=== PATIENT | male | born 1955 | race Caucasian/White ===

== ENCOUNTER 2016-08-10 10:03 | Day surgery (SDC) | payer OTHER ==
[~2016-08-10] VITALS: Ht 167.6 cm; Wt 106.4 kg
[~2016-08-10 10:03] MED LIST: ASPI-557 PO; CEFAZOLIN 1 GRAM INJECTION IV ONE; HYDR-4009 PO; LOSA1TAB56 PO; LR 1,000 ML IV SCH; MULT-1114 PO; PRAV40TA3 PO
--- OUTSIDE RECORDS SUMMARY | 2016-08-10 10:14 | XMS REPORT | Referral Summary ---
Author Author [facility] Organization [facility] Address Unknown Phone Unavailable Care Team Providers Care Galvanizer Name Role Phone Michelle Victoria Primary Care Physician [phone] Encounter Date(s): 08/02/15 - 08/02/15 [facility] [address] [place], [place] [address] Discharge Diagnosis: Lumbosacral radiculopathy Discharge Diagnosis: DDD (degenerative disc disease), lumbar Discharge Diagnosis: Enthesopathy of hip region Discharge Diagnosis: Meralgia paresthetica 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 Discharge Disposition: 01-Home or Self Care Attending Physician: Temo Freeman MD Admitting Physician: Temo Freeman MD Referring Physician: Luana Covington APRN Vital Signs Most recent to 1 oldest [Reference Range]: Blood Pressure 128/78 mmHg [90-140/60-90 mmHg] (08/02/15 3:16 PM) Problem List Condition Effective Dates Status Health Status Informant Achilles 04/12/11 - 03/21/14 Resolved bursitis/tendonitis( Confirmed) Allergic Active rhinitis(Confirmed) Hay fever(Confirmed) Active Benign essential Resolved hypertension (disorder)(Confirmed ) Dyslipidemia(Confirm Active ed) History of prostate Active cancer(Confirmed) Hypertension(Confirm Active ed) Erectile Active dysfunction(Confirme d) Meralgia Active paresthetica(Confirm ed) Mixed hyperlipidemia Resolved (disorder)(Confirmed ) Obesity(Confirmed) Active patient Allergies, Adverse Reactions, Alerts Substance Reaction Severity Status AmLODIPine Besylate EDEMA Active Medications aspirin 81 mg oral tablet 1 tabs, Oral, Daily, # 90 tabs, 0 Refill(s) Start Date: 01/22/14 Status: Ordered gabapentin 100 mg oral capsule See Instructions, Pain Moderate (4-6), 1 -3 caps Oral TID as needed, # 90 Each, 0 Refill(s), Pharmacy: [facility] #[id number], 1 -3 caps Oral TID as needed, PRN:Pain Moderate (4-6) Start Date: 07/22/15 Status: Ordered losartan-hydrochlorothiazide 100 mg-12.5 mg oral tablet 1 tabs, Oral, Daily, # 90 tabs, 1 Refill(s), Pharmacy: [facility] Start Date: 07/02/15 Status: Ordered multivitamin Daily, 0 Refill(s) Start Date: 01/22/14 Status: Ordered Naprosyn 500 mg oral tablet 500 mg 1 tabs, Oral, BID, Pain Moderate (4-6), # 180 tabs, 0 Refill(s), Pharmacy : [facility] #[id number], 1 tabs Oral BID,PRN:Pain Moderate (4-6) Start Date: 06/24/15 Status: Ordered pravastatin 40 mg oral tablet See Instructions, TAKE 1 TABLET DAILY, # 90 tabs, eRx: [facility], TAKE 1 TABLET DAILY Start Date: 06/03/15 Status: Ordered predniSONE 10 mg oral tablet See Instructions, 40 mg x3 days , 30mg x3 days, 20mg x3 days, 10mg x3 days, # 30 tabs, 0 Refill(s), Pharmacy: [facility] #[id number], 40 mg x3 days , 30mg x3 days, 20mg x3 days, 10mg x3 days Start Date: 07/29/15 Stop Date: 08/12/15 Status: Ordered Tylenol Extra Strength mg, Oral, q6hr, as needed for pain, 0 Refill(s) Start Date: 07/22/15 Status: Ordered Results No data available for this section Immunizations Vaccine Date Refusal Reason tetanus/diphth/pertuss (Tdap) adult/adol 11/24/05 influenza virus vaccine, live 05/29/13 pneumococcal 23-polyvalent vaccine 05/29/13 zoster vaccine live 04/02/11 Procedures Procedure Date Related Diagnosis Body Site Incision and drainage of abscess of neck1 05/04/14 Radical prostatectomy 09/11/07 Colonoscopy 09/08/07 Cystoscopy2 08/15/07 TURP - Redo transurethral resection of prostate 1DELAYED SECONDARY CLOSURE OF 5CM WOUND INVOLVING POSTIER NECK. 2transrectal needle prostate bx and vasectomy Social History Social History Type Response Smoking Status Never smoker Assessment and Plan Extracted from: Title: Office Visit Note Author: Temo Freeman MD Date: 08/02/15 Assessment/Plan DDD (degenerative disc disease), lumbar Ordered: Request for Therapies Enthesopathy of hip region Ordered: Request for Therapies Foraminal stenosis of lumbar region Ordered: Request for Therapies Lumbosacral radiculopathy Ordered: Request for Therapies Meralgia paresthetica Ordered: Request for Therapies RECOMMENDATIONS: I explained to the patient he has 3 symptomatic pathologies, the most acutely symptomatic his left-sided trochanteric,then a left L4 radiculopathyand meralgia paresthetica. This correlates with the MRI showing disc herniation stenosis at the L4 5 region. Due to the patients significant symptoms which have persisted , I would recommend left trochanteric bursa injection under Ultrasoundand physical therapy for his back. I explained the rationale of the procedure as well as the possible complications and the patient voiced understanding and wishes to proceed. I alsoadvised him on the importance of wearing looser clothingandnot putting his wallet in his left back pocket. He also realizes the importance of losing weightfor his meralgia paresthetica and back issues. I ordered x-rays of his lumbar spine flexion-extension views and x-rays of his left hip. All questions were answered, pathology explained using appropriate models and relevant education provided. I shall see the patient back for reassessment following his trochanteric bursa injection and completion of physical therapy.
--- OUTSIDE RECORDS SUMMARY | 2016-08-10 10:14 | XMS REPORT | Referral Summary ---
Author Author [facility] Organization [facility] Address Unknown Phone Unavailable Care Team Providers Care Sole Trimmer Name Role Phone Michelle Victoria Primary Care Physician [phone] Encounter VC Date(s): 09/11/15 - 09/11/15 [facility] [address] [place] [id number] Discharge Diagnosis: Elevated WBCs Discharge Diagnosis: Knee pain, left Discharge Diagnosis: Diverticulitis of colon with bleeding Discharge Disposition: 01-Home or Self Care Attending Physician: Luana Covington APRN Admitting Physician: Luana Covington APRN Vital Signs Most recent to 1 oldest [Reference Range]: Temperature Tympanic 36.4 degC [36.6-38.1 degC] *LOW* (09/11/15 3:41 PM) Peripheral Pulse 84 bpm Rate [60-100 bpm] (09/11/15 3:41 PM) Respiratory Rate 16 br/min [14-20 br/min] (09/11/15 3:41 PM) Blood Pressure 134/86 mmHg [90-140/60-90 mmHg] (09/11/15 3:41 PM) Problem List Condition Effective Dates Status Health Status Informant Achilles 04/12/11 - 03/21/14 Resolved bursitis/tendonitis( Confirmed) Allergic Active rhinitis(Confirmed) Hay fever(Confirmed) Active Benign essential Resolved hypertension (disorder)(Confirmed ) DDD (degenerative Active disc disease), lumbar(Confirmed) Diverticulitis of Active colon with bleeding(Confirmed)1 Dyslipidemia(Confirm Active ed) Enthesopathy of hip Active region(Confirmed) History of prostate Active cancer(Confirmed) Hypertension(Confirm Active ed) Prediabetes(Confirme Active d) Erectile Active dysfunction(Confirme d) Lumbar Active radiculopathy(Confir med) Meralgia Active paresthetica(Confirm ed) Mixed hyperlipidemia Resolved (disorder)(Confirmed ) Obesity(Confirmed) Active patient Lumbar disc Active herniation(Confirmed ) Lumbar spinal Active stenosis(Confirmed) 1colonoscopy 08/15/15 GI bleeding-probable cause. No source identiified. Allergies, Adverse Reactions, Alerts Substance Reaction Severity Status AmLODIPine Besylate EDEMA Active Medications losartan-hydrochlorothiazide 100 mg-12.5 mg oral tablet 1 tabs, Oral, Daily, # 90 tabs, 1 Refill(s), Pharmacy: [facility] Start Date: 07/02/15 Status: Ordered multivitamin Daily, 0 Refill(s) Start Date: 01/22/14 Status: Ordered [place] 5 mg-325 mg oral tablet 1 tabs, Oral, q6hr, as needed for pain, # 90 tabs, 0 Refill(s) Start Date: 09/11/15 Stop Date: 10/11/15 Status: Ordered pravastatin 40 mg oral tablet See Instructions, TAKE 1 TABLET DAILY, # 90 tabs, 1 Refill(s), eRx: [facility], TAKE 1 TABLET DAILY Start Date: 08/21/15 Status: Ordered Results No data available for this section Immunizations Vaccine Date Refusal Reason tetanus/diphth/pertuss (Tdap) adult/adol 11/24/05 influenza virus vaccine, live 05/29/13 pneumococcal 23-polyvalent vaccine 05/29/13 zoster vaccine live 04/02/11 Procedures Procedure Date Related Diagnosis Body Site COLORECTAL CANCER SCREENING; COLONOSCOPY ON 08/15/15 INDIVIDUAL NOT MEETING CRITERIA FOR HIGH RISK1 Esophagogastroduodenoscopy and biopsy2 08/13/15 Incision and drainage of abscess of neck3 05/04/14 Radical prostatectomy 09/11/07 Colonoscopy 09/08/07 Cystoscopy4 08/15/07 TURP - Redo transurethral resection of prostate 1Normal colonoscopy, with sigmoid diverticulosis the likely cause of rectal bleeding. Repeat colonoscopy in 10 years 2Negative for Matamoros's. No evidence of ulcers or bleeding. Performed for rectal bleeding. 3DELAYED SECONDARY CLOSURE OF 5CM WOUND INVOLVING POSTIER NECK. 4transrectal needle prostate bx and vasectomy Social History Social History Type Response Smoking Status Never smoker Assessment and Plan Extracted from: Title: Office Visit Note-pain/lab Author: Luana Covington FACILITIES MAINTENANCE ENGINEER Date: 09/11/15 Assessment/Plan 1.Knee pain, left Continue physical therapy. Reviewed recent MRI results. No significant abnormalities other than some mild swelling. Refill provided for Groton. Number 60. Patient may take 2-3 per day. Try to decrease his physical therapy goes along. Discussed adding a muscle relaxer. Patient will consider and talk with physical therapist about tomorrow to see if they think it would be beneficial. 2.Elevated WBCs Resolved. Labs reviewed. 3.Diverticulitis of colon with bleeding Asymptomatic. Hemoglobin relatively stable. Plan follow-up in 4 months for med check at that time. Orders: HYDROcodone-acetaminophen, 1 tabs, Oral, q6hr, as needed for pain, # 90 tabs, 0 Refill(s) Addendum I reviewed this chart, the patient's medical history, and the by Alf, Resident's/FACILITIES MAINTENANCE ENGINEER's/PA/RN's/PharmD's documented findings, and concur with the assessment and Santhosh DO plan as above. on September 11, 2015 18:57:02 MURRAYT
--- OUTSIDE RECORDS SUMMARY | 2016-08-10 10:14 | XMS REPORT | Referral Summary ---
Author Author [facility] Organization [facility] Address Unknown Phone Unavailable Care Team Providers Care Clinical Faculty Name Role Phone Michelle Victoria Primary Care Physician [phone] Encounter VC Date(s): 03/03/16 - 03/03/16 [facility], [address] [place] [address] Discharge Diagnosis: Diverticulitis of colon with bleeding Discharge Diagnosis: Viral respiratory illness Discharge Disposition: 01-Home or Self Care Attending Physician: Luana Covington APRN Admitting Physician: Luana Covington APRN Vital Signs Most recent to 1 oldest [Reference Range]: Temperature Tympanic 38.3 degC [36.6-38.1 degC] *HI* (03/03/16 12:53 PM) Peripheral Pulse 80 bpm Rate [60-100 bpm] (03/03/16 12:53 PM) Respiratory Rate 16 br/min [14-20 br/min] (03/03/16 12:53 PM) Blood Pressure 132/86 mmHg [90-140/60-90 mmHg] (03/03/16 12:53 PM) Problem List Condition Effective Dates Status [...] Severity Status AmLODIPine Besylate EDEMA Active Medications amoxicillin 875 mg oral tablet 875 mg 1 tabs, Oral, BID, X 10 days, # 20 tabs, 0 Refill(s) Start Date: 03/03/16 Stop Date: 03/13/16 Status: Ordered Aspir-Low 81 mg oral delayed release tablet 81 mg 1 tabs, Oral, Daily, # 30 tabs, 0 Refill(s) Start Date: 03/03/16 Status: Ordered losartan-hydrochlorothiazide 100 mg-12.5 mg oral tablet 1 tabs, Oral, Daily, # 90 tabs, 3 Refill(s), Pharmacy: [facility] Start Date: 09/27/15 Status: Ordered multivitamin Daily, 0 Refill(s) Start Date: 01/22/14 Status: Ordered [place] 5 mg-325 mg oral tablet 1 tabs, Oral, q6hr, as needed for pain, # 90 tabs, 0 Refill(s) Start Date: 09/11/15 Stop Date: 10/11/15 Status: Ordered pravastatin 40 mg oral tablet See Instructions, TAKE 1 TABLET DAILY, # 90 tabs, 3 Refill(s), Pharmacy: [facility], TAKE 1 TABLET DAILY Start Date: 09/27/15 Status: Ordered Results No data available for this section Immunizations Vaccine Date Refusal Reason tetanus/diphth/pertuss (Tdap) adult/adol 01/07/16 tetanus/diphth/pertuss (Tdap) adult/adol 11/24/05 influenza virus vaccine, [...] and Plan Extracted from: Title: Office Visit Note-URI Author: Luana Covington MORTGAGE SPECIALIST Date: Assessment/Plan 1.Viral respiratory illness Discussed with patient this is likely viral in nature. The clinical history is most compatible with that of a viral syndrome. Clinical examination does not suggest sinusitis, pneumonia, meningitis or streptococcal pharyngitis. Increase fluid intake. Enc good handwashing. Recommend OTC Mucinexor other [id number] cough and cold medications as long as he does not duplicate active ingredients. Afrin nasal spray (for no more than 5 days), per package instructions as need for cough/congestion. . Recommend OTC Tylenol per package instructions as needed for fever, pain, and body aches. Symptoms should improve over the next 1-2 weeks. If symptoms get worse, spikes fever, inc cough or shortness of breath recommend starting amoxicillin 875 mg one by mouth twice a day 10 daysorER/IC. I do not feel that any further extensive workup is indicated. However the patient is counseled that should new symptoms develop or the symptoms worsen, further evaluation and testing may be warranted as those symptoms declare themselves and that followup is of vital importance. 2.Diverticulitis of colon with bleeding Patient wondering if he should restart baby aspirin. I think that is reasonable. Recommend enteric-coated baby aspirin. Avoid NSAIDs.
--- OUTSIDE RECORDS SUMMARY | 2016-08-10 10:14 | XMS REPORT | Continuity of Care Document ---
Author Author [facility] Organization [facility] Address Unknown Phone Unavailable Support Name Relationship Address Phone AIRAM HINTON FACS, MD Caregiver [address] [place] [address] [place], [place] [phone] JONG BLOOM MD Caregiver [address] [facility] [address] [place], [place] [phone] XIAOANN Julien Caregiver [address] [place], [place] [phone] JUSTA COCHRAN Next Of Kin [address] [place], [place] [id number] Insurance Providers Payer Name Policy Number Subscriber Name Relationship [employer] Other [id number] Sunil Cochran 18 Self Advance Directives Directive Response Recorded Date/Time Ordered Resuscitation Status Full Code 05/03/14 3:34pm Resuscitation Documents on File No 05/03/14 9:17am Problems No known problems or medical conditions. Medications Medication Dose Route Sig Days/Qty Instructions Order Date Discontinued Date Status [Prosed Ds] FOUR TIMES DAILY 12/25/09 01/02/10 Discontinued Pravastatin Sodium 1 Tab PO DAILY 90 Qty 05/03/14 Active Losartan Potassium 1 Tab PO DAILY 90 Qty 05/03/14 Active Cephalexin 1 Tab PO THREE TIMES A DAY 21 Qty 05/03/14 Active Multivitamin 1 Tab PO DAILY 05/03/14 Active Aspirin 1 Tab PO DAILY 05/03/14 Active Social History Social History Problem Response Recorded Date/Time Chewing Tobacco Status No 05/03/2014 9:12am Hx Substance Use No 05/03/2014 9:12am Hx Alcohol Use No 05/03/2014 9:12am Has the pt used tobacco in the last 12 months No 05/03/2014 9:12am Query Response Start Date Stop Date Smoking Status Never smoker Hospital Discharge Instructions No hospital discharge instructions. Plan of Care No plan of care. Functional Status No functional status results. Allergies, Adverse Reactions, Alerts Allergen Type Severity Reaction Status Last Updated No Known Drug Allergies Allergy Unknown Active 08/12/07 Amlodipine Allergy Unknown Active 05/03/14 Immunizations Name Given Type Hx Influenza Vaccination No Historical Hx Pneumococcal Vaccination No Historical Hx Influenza Vaccination No Historical Vital Signs Acute Vital Signs Vital Response Date/Time Temperature (Fahrenheit) 97.1 deg F (96.8 - 99.1) Temperature (Calculated Celsius) 36.66170 degrees C (36.0 - 37.3) Temperature Source Temporal Pulse Rate (adult) 76 bpm (60 - 100) Respiratory Rate 16 breaths/min (10 - 20) O2 Sat by Pulse Oximetry 94 % (90 - 100) Oxygen Delivery Method Room Air Blood Pressure 131/71 mm Hg Blood Pressure Source Automatic Cuff Height 5 ft 6 in Weight 312 lb Body Mass Index 50.0 kg/m^2 Results Test Source Date Result Interp. Ref. Range Comments Activated Partial Thromboplast Time August 15, 2007 8:20am 34.5 SEC N 25- 36 COMMENT TO SCU AT 0800 Alanine Aminotransferase (ALT/SGPT) December 27, 2009 4:00am 26 U/L N 21-72 Albumin December 27, 2009 4:00am 4.57 G/DL N 3.5-5.0 Albumin/Globulin Ratio December 27, 2009 4:00am 1.6 RATIO N 1.1-2.2 Alkaline Phosphatase December 27, 2009 4:00am 82 U/L N 38-126 Anion Gap August 26, 2012 6:04pm 9 MEQ/L N 5-15 Aspartate Amino Transf (AST/SGOT) December 27, 2009 4:00am 42 U/L N 17- 59 BUN/Creatinine Ratio August 26, 2012 6:04pm 22 RATIO N 6-26 Basophils # (Auto) May 04, 2014 10:50am 0.0 T/MM3 N 0-0.2 Basophils (%) (Auto) May 04, 2014 10:50am 0.3 % N 0-2 Blood Urea Nitrogen August 26, 2012 6:04pm 20.0 MG/DL N 9-20 Calcium Level August 26, 2012 6:04pm 9.2 MG/DL N 8.4-10.2 Calculated Osmolality August 26, 2012 6:04pm 277 MOSM/KG N 261-280 Carbon Dioxide Level August 26, 2012 6:04pm 30 MEQ/L N 22-30 Chloride Level August 26, 2012 6:04pm 104 MEQ/L N 98-107 Creatinine August 26, 2012 6:04pm 0.9 MG/DL N 0.8-1.5 Eosinophils # (Auto) May 04, 2014 10:50am 0.1 T/MM3 N 0-0.5 Eosinophils # (Manual) August 26, 2012 6:04pm 0.1 T/MM3 N 0-0.5 Eosinophils % (Manual) August 26, 2012 6:04pm 1.0 % N 0-4 Eosinophils (%) (Auto) May 04, 2014 10:50am 1.0 % N 0-4 Globulin December 27, 2009 4:00am 2.8 G/DL N 2.4-3.6 Glucose Level August 26, 2012 6:04pm 84 MG/DL N 75-110 Hematocrit May 04, 2014 10:50am 46.3 % N 41-53 Hemoglobin May 04, 2014 10:50am 15.7 GM/DL N 13.5-17.5 Lymphocytes # (Auto) May 04, 2014 10:50am 1.3 T/MM3 N 1-4.8 Lymphocytes # (Manual) August 26, 2012 6:04pm 1.1 T/MM3 N 1-4.8 Lymphocytes % (Manual) August 26, 2012 6:04pm 14.0 % L 23-45 Lymphocytes (%) (Auto) May 04, 2014 10:50am 18.0 % L 23-45 Mean Corpuscular Hemoglobin May 04, 2014 10:50am 31.3 UUG N 26-34 Mean Corpuscular Hemoglobin Concent May 04, 2014 10:50am 33.9 GM/DL N 31-37 Mean Corpuscular Volume May 04, 2014 10:50am 92.2 UM3 N 80-100 Mean Platelet Volume May 04, 2014 10:50am 10.9 UM3 N 9.4-12.4 Monocytes # (Auto) May 04, 2014 10:50am 0.7 T/MM3 N 0-0.8 Monocytes # (Manual) August 26, 2012 6:04pm 0.4 T/MM3 N 0-0.8 Monocytes % (Manual) August 26, 2012 6:04pm 5.0 % N 0-9.0 Monocytes (%) (Auto) May 04, 2014 10:50am 9.5 % H 0-9.0 Neutrophils # (Auto) May 04, 2014 10:50am 5.0 T/MM3 N 1.8-7.7 Neutrophils # (Manual) August 26, 2012 6:04pm 6.4 T/MM3 N 1.8-7.7 Neutrophils % (Manual) August 26, 2012 6:04pm 79.0 % H 33-66 Neutrophils (%) (Auto) May 04, 2014 10:50am 70.9 % H 33-66 Platelet Count May 04, 2014 10:50am 197 T/MM3 N 130-400 Potassium Level August 26, 2012 6:04pm 4.0 MEQ/L N 3.6-5 Prothromb Time International Ratio August 15, 2007 8:20am 0.96 N 0.79-1.23 THERAPUTIC RANGE=2.00-3.00 FOR ANTI-THROMBOSIS THERAPUTIC RANGE=2.50-3.50 FOR IMPLANTED VALVE RDW Standard Deviation May 04, 2014 10:50am 42.6 FL N 36.9-50.2 Red Blood Count May 04, 2014 10:50am 5.02 M/MM3 N 4.50-5.90 Sodium Level August 26, 2012 6:04pm 143 MEQ/L N 134-144 Total Bilirubin December 27, 2009 4:00am 0.43 MG/DL N 0.20-1.30 Total Protein December 27, 2009 4:00am 7.4 G/DL N 6.3-8.2 Uric Acid August 26, 2012 6:04pm 5.9 MG/DL N 3.5-8.5 Urine Amorphous Phosphates December 27, 2009 4:45am Moderate - Has specimen been collected/obtained? Y Urine Bacteria December 25, 2009 10:23am 1+ H - Urine Bilirubin February 13, 2010 8:15am Negative - Urine Blood February 13, 2010 8:15am Negative - Urine Collection Type February 13, 2010 8:15am Voided - Urine Color February 13, 2010 8:15am Yellow - Urine Glucose (UA) February 13, 2010 8:15am Negative - Urine Ketones February 13, 2010 8:15am Negative - Urine Leukocyte Esterase February 13, 2010 8:15am Negative - Urine Nitrite February 13, 2010 8:15am Negative - Urine Protein February 13, 2010 8:15am Negative - Urine RBC December 27, 2009 4:45am None seen /HPF - Has specimen been collected/obtained? Y Urine Specific [place] February 13, 2010 8:15am 1.020 - Urine Squamous Epithelial Cells December 24, 2009 6:33am None seen - Has specimen been collected/obtained? YWhat is the Source? VOIDED Urine Turbidity February 13, 2010 8:15am Clear - Urine Urobilinogen February 13, 2010 8:15am Normal EU/DL - Urine WBC December 27, 2009 4:45am None seen /HPF - Has specimen been collected/obtained? Y Urine pH February 13, 2010 8:15am 6.0 - White Blood Count May 04, 2014 10:50am 7.1 T/MM3 N 4.5-11.0 Lab Scanned Report August 26, 2012 10:33pm LAB TEST FORM REQUEST [id number] - Reactive Lymphocytes % August 26, 2012 6:04pm 1.0 % H 0-0 Glomerular Filtration Rate Calc August 26, 2012 6:04pm 87 - Reactive Lymphocytes # August 26, 2012 6:04pm 0.1 T/MM3 H 0-0 Immature Granulocyte # (Auto) May 04, 2014 10:50am 0.02 T/MM3 N 0.00 -0.03 Immature Granulocyte % (Auto) May 04, 2014 10:50am 0.3 % N 0.0-0.5 Urine Microscopic Not Indicated February 13, 2010 8:15am Not indicated - Blood Culture Blood September 25, 2007 12:26am NO GROWTH AFTER 5 DAYS Urine Culture Urine, Clean Catch Voided December 25, 2009 10:23am Mixed Contaminants Procedures Procedure Status Date Provider(s) Wound debridement completed 05/04/14 AIRAM HINTON MD, FACS, CWS
--- OUTSIDE RECORDS SUMMARY | 2016-08-10 10:15 | XMS REPORT | Continuity of Care Document ---
Author Author Luana Morin [facility] Ambulatory Address [address] [place] [address] [place] [address] Phone Care Team Providers Care Hyperion Developer Name Role Phone Carty, Familia GONZALEZ Unavailable Payers Payer name Insurance type Covered green party ID Authorization(s) Unknown Problems Condition Effective Dates (start - stop) Clinical Status Routine Medical Exam - *Routine Hypertension, Benign - *Controlled Mixed Hyperlipidemia - *Controlled Erectile Dysfunction - *Chronic Influenza Vaccine - Pneumonia Vaccine - History of prostate cancer - *Stable Other acute sinusitis - *Acute Mixed Hyperlipidemia - *Controlled Hypertension, Benign - *Controlled Pain in limb - *Resolved Tear of lateral cartilage or meniscus of knee, current - Acute Erectile Dysfunction - *Symptomatic Mixed Hyperlipidemia - *Chronic Hypertension, Benign - *Chronic Malignant Neoplasm, Prostate - *Chronic Bug bite - *Acute Bite of nonvenomous arthropod - *Acute Unspecified otitis media - *Acute Malignant Neoplasm, Prostate - *Controlled Bladder neck obstruction - *Controlled Right hand pain - *Acute MIXED HYPERLIPIDEMIA - BENIGN HYPERTENSION - ALLERGIC RHINITIS NOS - ACHILLES TENDINITIS - ANKLE ENTHESOPATHY NEC - Family History Family Member Diagnosis Age At Onset Status Father (Unknown) Hypertension Yes Father (Unknown) macular degeneration Yes Father (Unknown) heart valve replacement Yes Mother (Unknown) Hypertension Yes Mother (Unknown) Congestive heart failure Yes Mother (Unknown) Glaucoma Yes Social History Social History Element Description Quantity Unknown Allergies, Adverse Reactions, Alerts Substance Reaction Severity Status AMLODIPINE BESYLATE edema Unknown Medications Medication Instructions Dosage Effective Dates (start - stop) Status Claritin-D 24 Hour 10 mg-240 mg tablet,extended release take 1 tablet by oral route every day prn 0 - Active pravastatin 20 mg tablet take 2 tablet (40MG) by oral route every day 40 MG - Active losartan 50 mg tablet Take 1 tablet by mouth every day. - Active Viagra 100 mg tablet take 1 tablet (100MG) by oral route every day as needed approximately 1 hour before sexual activity 100 MG - Active Immunizations Vaccine Date Status Comments Fluzone Adult QIV completed Pneumo (2 yrs or older)(PPV) completed Tdap (Adacel ) completed - Completed reason: other provider Zoster completed - Completed reason: other provider Results Test Name Date and Time Measure Units Reference Range Abnormal Flag Comments Panel Description: Prostatic Specific Antigen-[facility] PSA 13:57:00 <0.1 ng/mL 0.0-3.5 AUA PSA Best Practice Guidelines: Age-Adjusted PSA Values by Ethnic GroupAge Range Asians - Caucasians [id number] 0-2.0 0-2.0 0-2.550-59 0-3.0 0-4.0 0-3.560-69 0-4.0 0-4.5 0-4.570-79 0-5.0 0-5.5 0-6.5Testing performed at [facility] [address] [facility] [address] Jd Edwards Consultant Kaveh Purcell MD Vital Signs Date / Time: Height Weight Pulse Rate Blood Pressure Temperature /12:57:00 65.00 in 232.00 lbs 72 /min 118/60 mm[Hg] 96.8 F Procedures Procedure Date FLU VAC NO PRSV 4 TERRENCE 3 YRS+ IMMUNIZ,ADMIN,SINGLE PNEUMOCOCCAL VACCINE,ADULT,SQ OR IM IMMUNIZ,ADMIN,SINGLE Encounters Encounter Location Date Patient Visit [facility] Patient Visit [facility] Care Patient Visit [facility] Patient Visit [facility] Patient Visit [facility] Patient Visit [facility] Urology Patient Visit [facility] Patient Visit Conversion Advance Directives Directive Effective Date Unknown
--- OUTSIDE RECORDS SUMMARY | 2016-08-10 10:15 | XMS REPORT | Continuity of Care Document ---
Author Author [facility] Organization [facility] Address Unknown Phone Unavailable Allergies Active Description Code Type Severity Reaction Onset Reported/Identified Relationship to Patient Clinical Status Yes AmLODIPine Besylate NKMA N/A EDEMA 01/22/2014 Medications Problems Procedures Results Encounters ACCT No. Visit Date/Time Discharge Status Pt. Type Provider Facility Loc./Unit Complaint [id number] 05/29/2013 12:52:00 05/29/2013 23 :59:59 C[facility] Outpatient
--- OUTSIDE RECORDS SUMMARY | 2016-08-10 10:15 | XMS REPORT | Referral Summary ---
Author Organization Unknown Address Unknown Phone Unavailable Care Team Providers Care Shopping Centre Manager Name Role Phone Kristen Carty JR Primary Care Physician [phone] Encounter VC Date(s): 05/01/14 - 05/01/14 [facility] [place], [address] [place] [id number] Discharge Diagnosis: Infected sebaceous cyst Discharge Disposition: Home or Self Care Attending Physician: Nick Ball MD Admitting Physician: Nick Ball MD Vital Signs Most recent to 1 oldest [Reference Range]: Temperature Tympanic 36.4 degC [36.6-38.1 degC] *LOW* (05/01/14 12:47 PM) Blood Pressure 124/80 mmHg [90-140/60-90 mmHg] (05/01/14 12:47 PM) Problem List Condition Effective Dates Status Health Status Informant Achilles 04/12/11 Active bursitis/tendonitis( Confirmed) Allergic Active rhinitis(Confirmed) Hay fever(Confirmed) Active Benign essential Active hypertension (disorder)(Confirmed ) Dyslipidemia(Confirm Active ed) History of prostate Active cancer(Confirmed) Hypertension(Confirm Active ed) Erectile Active dysfunction(Confirme d) Impotence of organic Active origin (disorder)(Confirmed ) Prostate Active cancer(Confirmed) Mixed hyperlipidemia Active (disorder)(Confirmed ) Obesity(Confirmed) Active patient Allergies, Adverse Reactions, Alerts Substance Reaction Severity Status AmLODIPine Besylate EDEMA Active Medications aspirin 81 mg oral tablet 1 tabs, Oral, Daily, # 90 tabs, 0 Refill(s) Start Date: 01/22/14 Status: Ordered Claritin-D 24 Hour oral tablet, extended release 1 tabs, Oral, Daily, as needed for allergy symptoms, # 15 tabs, 0 Refill(s) Start Date: 01/22/14 Status: Ordered Keflex 500 mg oral capsule 1 caps, Oral, q8hr, # 30 caps, 0 Refill(s) Start Date: 05/01/14 Stop Date: 05/15/14 Status: Ordered losartan 50 mg oral tablet 1 tabs, Oral, Daily, # 30 tabs, 0 Refill(s) Start Date: 01/22/14 Status: Ordered multivitamin Daily, 0 Refill(s) Start Date: 01/22/14 Status: Ordered pravastatin 20 mg oral tablet 2 tabs, Oral, Bedtime (once a day), 0 Refill(s) Start Date: 01/22/14 Status: Ordered Viagra 100 mg oral tablet 1 tabs, Oral, Daily, as needed for erectile dysfunction, 0 Refill(s) Start Date: 01/22/14 Status: Ordered Vitamin B Complex oral tablet 1 tabs, Oral, Daily, # 100 tabs, 0 Refill(s) Start Date: 01/22/14 Status: Ordered Results No data available for this section Immunizations Vaccine Date Refusal Reason tetanus/diphth/pertuss (Tdap) adult/adol 11/24/05 influenza virus vaccine, live 05/29/13 pneumococcal 13-valent conjugate vaccine 05/29/13 zoster vaccine live 04/02/11 Procedures Procedure Date Related Diagnosis Body Site Radical prostatectomy 09/11/07 Colonoscopy 09/08/07 Cystoscopy1 08/15/07 TURP - Redo transurethral resection of prostate 1transrectal needle prostate bx and vasectomy Social History Social History Type Response Smoking Status Never smoker Assessment and Plan Extracted from: Title: Ambulatory Patient Education Author: Nick Ball MD Date: Family Medicine Epidermal Cyst An epidermal cyst is sometimes called a sebaceous cyst, epidermal inclusion cyst , or infundibular cyst. These cysts usually contain a substance that looks "pasty" or "cheesy" and may have a bad smell. This substance is a protein called keratin. Epidermal cysts are usually found on the face, neck, or trunk. They may also occur in the vaginal area or other parts of the genitalia of both men and women. Epidermal cysts are usually small, painless, slow-growing bumps or lumps that move freely under the skin. It is important not to try to pop them. This may cause an infection and lead to tenderness and swelling. CAUSES Epidermal cysts may be caused by a deep penetrating injury to the skin or a plugged hair follicle, often associated with acne. SYMPTOMS Epidermal cysts can become inflamed and cause: Redness. Tenderness. Increased temperature of the skin over the bumps or lumps. Grayish-white, bad smelling material that drains from the bump or lump. DIAGNOSIS Epidermal cysts are easily diagnosed by your caregiver during an exam. Rarely, a tissue sample (biopsy ) may be taken to rule out other conditions that may resemble epidermal cysts. TREATMENT Epidermal cysts often get better and disappear on their own. They are rarely ever cancerous. If a cyst becomes infected, it may become inflamed and tender. This may require opening and draining the cyst. Treatment with antibiotics may be necessary. When the infection is gone, the cyst may be removed with minor surgery. Small, inflamed cysts can often be treated with antibiotics or by injecting steroid medicines. Sometimes, epidermal cysts become large and bothersome. If this happens, surgical removal in your caregiver's office may be necessary. HOME CARE INSTRUCTIONS Only take [id number] or prescription medicines as directed by your caregiver. Take your antibiotics as directed. Finish them even if you start to feel better. SEEK MEDICAL CARE IF: Your cyst becomes tender, red, or swollen. Your condition is not improving or is getting worse. You have any other questions or concerns. MAKE SURE YOU: Understand these instructions. Will watch your condition. Will get help right away if you are not doing well or get worse. Document Released: 02/27/2005 Document Revised: 06/20/2012 Document Reviewed: ExitCare Patient Information 2014 [employer]. No follow up information was provided. Extracted from: Title: Office Visit Note Author: Nick Ball MD Date: 05/01/14 Assessment/Plan Infected sebaceous cyst Ordered: cephalexin, 1 caps, Oral, q8hr, # 30 caps, 0 Refill(s) Office Visit Level 2 New 22725 Plan: I informed the patient his would be my recommendation to go ahead and try to excise this probable inclusion cyst/sebaceous cyst. They understood and wished to proceed. Area of concern was painted with Betadine and draped in sterile fashion. One percent lidocaine with epinephrine injected circumferentially. Elliptical incision made overlying area of analgesia that was on the order about 3-1/2 cm in length and about a similar and a half in width. Underlying cystic-like structure was attempted to be excised. Cystic structure was significantly larger than anticipated. Cystic- like structure was entered with knife and a copious amount of sebaceous material that was purulent in nature was expressed. Attempt was made at excising additional cystic-like material within deep portion of wound. Patient began to experience moderate amount of pain despite injection of additional local anesthetic. Perhaps about 80 percent of the cystic wall was able to be excised. Deep portion of the cyst and infected material was left intact within the depth of the wound. Hemostasis obtained with electrocautery as well as by placing a few single interrupted suture of 4-0 Vicryl. Result of wound now is on the order about 4 cm in length and about 2-1/2 cm in width. Wound packed with an to 4 x 4's moistened in saline. Patient instructed to return to office tomorrow. Patient will likely have to have wound packed on daily basis over the course of the next week and then hopefully at that time one will be able to perform a delayed secondary closure. Given the degree of infection I was present patient was also given prescription for cephalexin as above.
--- OUTSIDE RECORDS SUMMARY | 2016-08-10 10:15 | XMS REPORT | Referral Summary ---
Author Organization Unknown Address Unknown Phone Unavailable Care Team Providers Care On Car Supervisor Name Role Phone Kristen Carty JR Primary Care Physician [phone] Encounter VC Date(s): 05/03/14 - 05/03/14 [facility], [place], [address] [place] [id number] Discharge Disposition: Home or Self Care Attending Physician: Nick Ball MD Admitting Physician: Nick Ball MD Vital Signs No data available for this section Problem List Condition Effective Dates Status Health [...] Smoking Status Never smoker Assessment and Plan No data available for this section
--- OUTSIDE RECORDS SUMMARY | 2016-08-10 10:15 | XMS REPORT | Referral Summary ---
Author Organization Unknown Address Unknown Phone Unavailable Care Team Providers Care Integration Software Engineer Name Role Phone Kristen Carty JR Primary Care Physician [phone] Encounter VC Date(s): 05/02/14 - 05/02/14 [facility], [place], [address] [place] [id number] Discharge Diagnosis: Infected sebaceous cyst Discharge Disposition: Home or Self Care Attending Physician: Nick Ball MD Admitting Physician: Nick Ball MD Vital Signs Most recent to 1 oldest [Reference Range]: Temperature Tympanic 36.5 degC [36.6-38.1 degC] *LOW* (05/02/14 3:41 PM) Problem List Condition Effective Dates [...] be necessary. HOME CARE INSTRUCTIONS Only take [id number] or prescription medicines as directed by your [...] Released: 02/27/2005 Document Revised: 06/20/2012 Document Reviewed: [employer] Patient Information 2014 [employer]. No follow up information was provided. Extracted from: Title: Office Visit Note Author: Nick Ball MD Date: 05/02/14 Assessment/Plan Infected sebaceous cyst Ordered: Postoperative Est 63320 Plan: I informed the patient that typically one would pack this wound with the next 3-4 weeks and that it would began to granulate in and heal on its own behalf. A complicating factor is that the patient works Wednesday through Wednesday in [employer]. He has no one to pack his wound during this timeframe. I informed the patient that I felt that one could go ahead and proceed with delayed secondary closure of this wound later this week given the fact that there is so much improvement already noted. One could perform an additional debridement if needed followed by a delayed secondary closure. Given the fact that the patient experienced a considerable amount of discomfort during the initial attempt of excision of this infected sebaceous cyst and the fact that the wound is fairly deep and adjacent to the the underlying fascia it was my recommendation that this would be carried out in the operative suite on an outpatient basis under some conscious sedation and local anesthetic. Patient understood and was scheduled on this Wednesday.
--- OUTSIDE RECORDS SUMMARY | 2016-08-10 10:15 | XMS REPORT | Referral Summary ---
Author Author [facility] Organization [facility] Address Unknown Phone Unavailable Care Team Providers Care Factory Manager Name Role Phone Michelle Victoria Primary Care Physician [phone] Encounter Date(s): 08/07/15 - 08/07/15 [facility] [address], [place] [address] Discharge Diagnosis: Enthesopathy of hip region Discharge Disposition: 01-Home or Self Care Attending Physician: Temo Freeman MD Admitting Physician: Temo Freeman MD Vital Signs Most recent to 1 oldest [Reference Range]: Blood Pressure 143/87 mmHg [90-140/60-90 mmHg] *HI* (08/07/15 3:53 PM) Problem List Condition Effective Dates Status Health Status Informant Achilles 04/12/11 - 03/21/14 Resolved bursitis/tendonitis( Confirmed) Allergic Active rhinitis(Confirmed) Hay fever(Confirmed) Active Benign essential Resolved hypertension (disorder)(Confirmed ) Dyslipidemia(Confirm Active ed) Enthesopathy of hip Active [...] needed, # 90 Each, 0 Refill(s), Pharmacy: [facility] #[id number], 1 -3 caps Oral TID as needed, PRN:Pain Moderate (4-6) Start Date: 07/22/15 Status: Ordered losartan-hydrochlorothiazide 100 mg-12.5 mg oral tablet 1 tabs, Oral, Daily, # 90 tabs, 1 Refill(s), Pharmacy: [facility] Start Date: 07/02/15 Status: Ordered multivitamin Daily, 0 Refill(s) Start Date: 01/22/14 Status: Ordered Naprosyn 500 mg oral tablet 500 mg 1 tabs, Oral, BID, Pain Moderate (4-6), # 180 tabs, 0 Refill(s), Pharmacy : [facility] #[id number], 1 tabs Oral BID,PRN:Pain Moderate (4-6) Start Date: 06/24/15 Status: Ordered pravastatin 40 mg oral tablet See Instructions, TAKE 1 TABLET DAILY, # 90 tabs, eRx: [facility], TAKE 1 TABLET DAILY Start Date: 06/03/15 Status: Ordered predniSONE 10 mg oral tablet See Instructions, 40 mg x3 days , 30mg x3 days, 20mg x3 days, 10mg x3 days, # 30 tabs, 0 Refill(s), Pharmacy: [facility] #[id number], 40 mg x3 days , 30mg x3 [...] Procedures Procedure Date Related Diagnosis Body Site Arthrocentesis, aspiration and/or injection, 08/07/15 major joint or bursa (eg, shoulder, hip, knee, subacromial bursa); without ultrasound guidance Incision and drainage of abscess of neck1 05/04/14 Radical prostatectomy 09/11/07 Colonoscopy 09/08/07 Cystoscopy2 08/15/07 TURP - Redo transurethral resection of prostate 1DELAYED SECONDARY CLOSURE OF 5CM WOUND INVOLVING POSTIER NECK. 2transrectal needle prostate bx and vasectomy Social History Social History Type Response Smoking Status Never smoker Assessment and Plan No data available for this section
--- OUTSIDE RECORDS SUMMARY | 2016-08-10 10:15 | XMS REPORT | Referral Summary ---
Author Author [facility] Organization [facility] Address Unknown Phone Unavailable Care Team Providers Care Insurance Commissioner Name Role Phone Michelle Victoria Primary Care Physician [phone] Encounter VC Date(s): 04/02/15 - 04/02/15 [facility] [address] [place] [address] [place] [phone]- Discharge Diagnosis: Visit for suture removal Discharge Disposition: 01-Home or Self Care Attending Physician: Tori Little APRN Admitting Physician: Tori Little APRN Referring Physician: Marco Antonio Victoria MD Vital Signs Most recent to 1 oldest [Reference Range]: Temperature Tympanic 36.4 degC [36.6-38.1 degC] *LOW* (04/02/15 8:54 AM) Problem List Condition Effective Dates Status Health Status Informant Achilles 04/12/11 - 03/21/14 Resolved bursitis/tendonitis( Confirmed) Allergic Active rhinitis(Confirmed) Hay fever(Confirmed) Active Benign essential Resolved hypertension (disorder)(Confirmed ) Dyslipidemia(Confirm Active ed) History of prostate Active cancer(Confirmed) Hypertension(Confirm Active ed) Erectile Active dysfunction(Confirme d) Mixed hyperlipidemia Resolved (disorder)(Confirmed ) Obesity(Confirmed) Active patient Allergies, Adverse Reactions, Alerts Substance Reaction Severity Status AmLODIPine Besylate EDEMA Active Medications aspirin 81 mg oral tablet 1 tabs, Oral, Daily, # 90 tabs, 0 Refill(s) Start Date: 01/22/14 Status: Ordered losartan-hydrochlorothiazide 100 mg-12.5 mg oral tablet 1 tabs, Oral, Daily, # 90 tabs, 3 Refill(s), Pharmacy: [facility] Start Date: 07/12/14 Status: Ordered multivitamin Daily, 0 Refill(s) Start Date: 01/22/14 Status: Ordered pravastatin 40 mg oral tablet See Instructions, TAKE 1 TABLET DAILY, # 90 Each, 3 Refill(s), Pharmacy: [facility], TAKE 1 TABLET DAILY Start Date: 03/05/15 Status: Ordered Results No data available for [...] Extracted from: Title: Office Visit Note Author: Tori Little APRN Date: 04/02/15 Assessment/Plan 1.Visit for suture removal pathology indicatesPathology indicates dermal fibrosis, no sign of cancer. Sutures removed without difficulty and antibiotic ointment applied. Ordered: Postoperative Est [id number]
--- OUTSIDE RECORDS SUMMARY | 2016-08-10 10:15 | XMS REPORT | Referral Summary ---
Author Author [facility] Organization [facility] Address Unknown Phone Unavailable Care Team Providers Care Braider Setter Name Role Phone Michelle Victoria Primary Care Physician [phone] Encounter VC Date(s): 03/05/15 - 03/05/15 [facility] [address] [place] [address] [place] [id number]- Discharge Diagnosis: Essential hypertension Discharge Diagnosis: Personal history of prostate cancer Discharge Diagnosis: Erectile dysfunction Discharge Diagnosis: Hypercholesterolemia Discharge Disposition: -Home or Self Care Attending Physician: Ramesh Graf JR, MD Admitting Physician: Ramesh Graf JR, MD Referring Physician: Marco Antonio Victoria MD Vital Signs Most recent to 1 oldest [Reference Range]: Peripheral Pulse 80 bpm Rate [60-100 bpm] (03/05/15 9:05 AM) Blood Pressure 118/80 mmHg [90-140/60-90 mmHg] (03/05/15 9:05 AM) Problem List Condition Effective Dates Status [...] Daily, # 90 tabs, 3 Refill(s), Pharmacy: [facility] Start Date: 07/12/14 Status: Ordered multivitamin Daily, 0 Refill(s) Start Date: 01/22/14 Status: Ordered pravastatin 40 mg oral tablet See Instructions, TAKE 1 TABLET DAILY, # 90 Each, 3 Refill(s), Pharmacy: [facility], TAKE 1 TABLET DAILY [...] Extracted from: Title: Ambulatory Patient Education Author: Ramesh Graf JR, MD Date : 03/05/15 Follow Up With: Where: When: Marco Antonio Victoria [address] [place] [address] Drive; [place] [address] Business (1) Within 3 to 5 days Comments: Follow Up With: Where: When: Ramesh Ibanez[address]; [place], [place] [id number] Business (1) In 6 months 09/03/2015 Comments: Extracted from: Title: Office Visit Note Author: Ramesh Graf JR, MD Date: 03/05/15 Assessment/Plan 1.Personal history of prostate cancer his PSA is rising from 0.16 months ago to now 0.2. Need to have his PSA followed closely in 6 months and if the patientPSA continues to rise ,he needs to be sent to medical oncologist. History of bladder neck contracture after he had radiation therapy and if his urinations will be getting slower tenderness of a repeat filiform and follower dilatation in the near future 2.Erectile dysfunction .continue Viagra 3.Essential hypertension continue losartan with hydrochlorothiazide 4.Hypercholesterolemia continue pravastatin Ordered: Office Visit Level 4 Est [id number]
--- OUTSIDE RECORDS SUMMARY | 2016-08-10 10:15 | XMS REPORT | Referral Summary ---
Author Author [facility], Family Medicine Organization [facility] Address Unknown Phone Unavailable Care Team Providers Care Roller Mill Operator Name Role Phone Michelle Victoria Primary Care Physician [phone] Encounter VC Date(s): 03/05/15 - 03/05/15 [facility], [address] [place] [address] Discharge Diagnosis: Dyslipidemia Discharge Diagnosis: Obesity Discharge Diagnosis: Mild eczema Discharge Diagnosis: History of prostate cancer Discharge Diagnosis: Hypertension Discharge Disposition: 01-Home or Self Care Attending Physician: Luana Covington APRN Admitting Physician: Luana Covington APRN Vital Signs Most recent to 1 oldest [Reference Range]: Temperature Tympanic 36.5 degC [36.6-38.1 degC] *LOW* (03/05/15 8:37 AM) Peripheral Pulse 68 bpm Rate [60-100 bpm] (03/05/15 8:37 AM) Blood Pressure 118/84 mmHg [90-140/60-90 mmHg] (03/05/15 8:37 AM) Problem List Condition Effective Dates Status [...] Daily, # 90 tabs, 3 Refill(s), [facility] Start Date: 07/12/14 Status: Ordered multivitamin Daily, 0 Refill(s) Start Date: 01/22/14 Status: Ordered pravastatin 40 mg oral tablet See Instructions, TAKE 1 TABLET DAILY, # 90 Each, 3 Refill(s), Pharmacy: [facility], TAKE 1 TABLET DAILY [...] and Plan Extracted from: Title: Office Visit Note-CDM Author: Luana Covington APRN Date: Assessment/Plan Dyslipidemia CDM report card completed and reviewed with patient. Last labs reviewed with patient. Recommendations discussed. Copy provided. Patient planning to return to office for fasting lab tomorrow. If medication changes will let him know. Patient requests a comprehensive physical in 6 months. Schedule that with Dr. Victoria. Ordered: Lipid Panel Office Visit Level 4 Est 51249 History of prostate cancer Follow with Dr. Graf. Ordered: Office Visit Level 4 Est 78602 Hypertension Continuelosartan/hydrochlorothiazide. Ordered: Albumin/Creatinine Ratio, Urine Comprehensive Metabolic Panel Office Visit Level 4 Est 89076 Mild eczema Recommend hdoq-otq-vxsjoug hydrocortisone cream on a Q-tip To the ear outer ear canalevery day. Let us know if does not improve. Obesity Encourage patient to eat a healthy diet and exercise. Ordered: Office Visit Level 4 Est 95126 Orders: pravastatin, See Instructions, TAKE 1 TABLET DAILY, # 90 Each, 3 Refill(s), Pharmacy: [facility], TAKE 1 TABLET DAILY
--- OUTSIDE RECORDS SUMMARY | 2016-08-10 10:15 | XMS REPORT | Referral Summary ---
Author Author [facility], Family Medicine Organization [facility] Address Unknown Phone Unavailable Care Team Providers Care Director Of Guidance In [employer] Name Role Phone Michelle Victoria Primary Care Physician [phone] Encounter VC Date(s): 11/04/15 - 11/04/15 [facility], [address] [place] [address] Discharge Diagnosis: Meralgia paresthetica Discharge Disposition: 01-Home or Self Care Attending Physician: Luana Covington APRN Admitting Physician: Luana Covington APRN Vital Signs Most recent to 1 oldest [Reference Range]: Temperature Tympanic 36.1 degC [36.6-38.1 degC] *LOW* (11/04/15 8:42 AM) Peripheral Pulse 72 bpm Rate [60-100 bpm] (11/04/15 8:42 AM) Blood Pressure 122/86 mmHg [90-140/60-90 mmHg] (11/04/15 8:42 AM) Problem List Condition Effective Dates Status [...] Daily, # 90 tabs, 3 Refill(s), Pharmacy: [facility] Start Date: 09/27/15 Status: Ordered multivitamin Daily, 0 Refill(s) Start Date: 01/22/14 Status: Ordered Butternut 5 mg-325 mg oral tablet 1 tabs, Oral, q6hr, as needed for pain, # 90 tabs, 0 Refill(s) Start Date: 09/11/15 Stop Date: 10/11/15 Status: Ordered pravastatin 40 mg oral tablet See Instructions, TAKE 1 TABLET DAILY, # 90 tabs, 3 Refill(s), Pharmacy: [facility], TAKE 1 TABLET DAILY Start [...] and Plan Extracted from: Title: Office Visit Note-mild Author: Luana Covington APRN Date: paresthetica Assessment/Plan 1.Meralgia paresthetica Strongly encourage patient to keep up his physical therapy exercises. When he is traveling get out of the car every 1-2 hours and walk around. Samples of Lyrica 50 mg one by mouth 3 times a day when necessary if he developsincreased symptoms. May use Butternut as prescribed. Use sparingly. Do not take and drive. We discussed repeat nerve block/cortisone injections. At this point patient does not feel like it is bad enough to pursue that. He would be interested in seeing a differentpain management doctor for another opinion/treatment options. He will let us know when he wants to proceed with that. Does not want to have that set up yet today. Patient can call when he is traveling if he has any issues. Ordered: Office Visit Level 3 Est 97187
--- OUTSIDE RECORDS SUMMARY | 2016-08-10 10:15 | XMS REPORT | Referral Summary ---
Author Organization Unknown Address Unknown Phone Unavailable Care Team Providers Care Head Loader Name Role Phone Kristen Carty JR Primary Care Physician [phone] Encounter VC Date(s): 05/15/14 - 05/15/14 [facility], [place], [address] [place] [address] Discharge Diagnosis: Visit for suture removal Discharge Disposition: Home or Self Care Attending Physician: Tori Little APRN Admitting Physician: Tori Little APRN Vital Signs Most recent to 1 oldest [Reference Range]: Temperature Tympanic 36.6 degC [36.6-38.1 degC] (05/15/14 10:10 AM) Problem List Condition Effective Dates Status [...] 0 Refill(s) Start Date: 01/22/14 Status: Ordered losartan 50 mg oral tablet 1 tabs, Oral, Daily, # 30 tabs, 0 Refill(s) Start Date: 01/22/14 Status: Ordered multivitamin Daily, 0 Refill(s) Start Date: 01/22/14 Status: Ordered neomycin/polymyxin B/hydrocortisone 0.35%-10,000 units/mL-1% otic solution 2 drops, Ear-Left, QID, X 7 days, # 10 mL, 0 Refill(s), Pharmacy: [facility] #[id number] Start Date: 05/14/14 Stop Date: 05/21/14 Status: Ordered pravastatin 40 mg oral tablet See Instructions, TAKE 1 TABLET DAILY, # 90 tabs, eRx: [facility], TAKE 1 TABLET DAILY Special Instructions: TAKE 1 TABLET DAILY Start Date: 05/15/14 Status: Ordered Viagra 100 mg oral tablet [...] Extracted from: Title: Ambulatory Patient Education Author: Tori Little APRN Date : 05/15/14 Family Medicine Suture Removal Your caregiver has removed your sutures today. If skin adhesive strips were applied at the time of suturing, or applied following removal of the sutures today, they will begin to peel off in a couple more days. If skin adhesive strips remain after 14 days, they may be removed. HOME CARE INSTRUCTIONS Change any bandages (dressings ) at least once a day or as directed by your caregiver. If the bandage sticks, soak it off with warm, soapy water. Wash the area with soap and water to remove all the cream or ointment (if you were instructed to use any) 2 times a day. Rinse off the soap and pat the area dry with a clean towel. Reapply cream or ointment as directed by your caregiver. This will help prevent infection and keep the bandage from sticking. Keep the wound area dry and clean. If the bandage becomes wet, dirty, or develops a bad smell, change it as soon as possible. Only take rqrm-oib-hdevszh or prescription medicines for pain, discomfort, or fever as directed by your caregiver. Use sunscreen when out in the sun. New scars become sunburned easily. Return to your caregivers office in in 7 days or as directed to have your sutures removed. You may need a tetanus shot if: You cannot remember when you had your last tetanus shot. You have never had a tetanus shot. The injury broke your skin. If you got a tetanus shot, your arm may swell, get red, and feel warm to the touch. This is common and not a problem. If you need a tetanus shot and you choose not to have one, there is a rare chance of getting tetanus. Sickness from tetanus can be serious. SEEK IMMEDIATE MEDICAL CARE IF: There is redness, swelling, or increasing pain in the wound. Pus is coming from the wound. An unexplained oral temperature above 102 F (38.9 C) develops. You notice a bad smell coming from the wound or dressing. The wound breaks open (edges not staying together) after sutures have been removed. Document Released: 12/22/2001 Document Revised: 06/20/2012 Document Reviewed: [facility] Patient Information 2014 [employer]. No follow up information was provided. Extracted from: Title: Office Visit Note Author: Tori Little APRN Date: 05/15/14 Assessment/Plan Visit for suture removal The incision looks good at think it should hold together nicely with the Steri-Strips. His leave them in place, they'll fall off on their own probably in about a week. Return to our office on an as- needed basis. Ordered: Postoperative Est 58734
--- OUTSIDE RECORDS SUMMARY | 2016-08-10 10:15 | XMS REPORT | Referral Summary ---
Author Author [facility], Urology Organization [facility] Address Unknown Phone Unavailable Care Team Providers Care Manager Product Management Name Role Phone Michelle Victoria Primary Care Physician [phone] Encounter VC Date(s): 08/23/14 - 08/23/14 [facility], Urology [address] [place] [address] [place] [address]- Discharge Diagnosis: Personal history of prostate cancer Discharge Disposition: 01-Home or Self Care Attending Physician: Ramesh Graf JR, MD Admitting Physician: Ramesh Graf JR, MD Referring Physician: Marco Antonio Victoria MD Vital Signs Most recent to 1 oldest [Reference Range]: Peripheral Pulse 81 bpm Rate [60-100 bpm] (08/23/14 10:42 AM) Blood Pressure 120/84 mmHg [90-140/60-90 mmHg] (08/23/14 10:42 AM) SpO2 97 % (08/23/14 10:42 AM) Problem List Condition Effective Dates Status Health Status Informant Achilles 04/12/11 - 03/21/14 Resolved bursitis/tendonitis( Confirmed) Allergic Active rhinitis(Confirmed) Hay fever(Confirmed) Active Benign essential Resolved hypertension (disorder)(Confirmed ) Dyslipidemia(Confirm Active ed) History of prostate Active cancer(Confirmed) Hypertension(Confirm Active ed) Erectile Active dysfunction(Confirme d) Impotence of organic Active origin (disorder)(Confirmed ) Prostate Active cancer(Confirmed) Mixed hyperlipidemia Resolved (disorder)(Confirmed ) Obesity(Confirmed) Active [...] 0 Refill(s) Start Date: 01/22/14 Status: Ordered Levitra 20 mg oral tablet 1 tabs, Oral, Daily, as needed for erectile dysfunction, # 18 tabs, 3 Refill(s) , Pharmacy: [facility], 1 tabs Oral Daily,PRN:as needed for erectile dysfunction Start Date: 07/12/14 Status: Ordered losartan-hydrochlorothiazide 100 mg-12.5 mg oral tablet 1 tabs, Oral, Daily, # 90 tabs, 3 Refill(s), Pharmacy: [facility] Start Date: 07/12/14 Status: Ordered multivitamin Daily, 0 Refill(s) Start Date: 01/22/14 Status: Ordered pravastatin 40 mg oral tablet See Instructions, TAKE 1 TABLET DAILY, # 90 tabs, eRx: [facility], TAKE 1 TABLET DAILY Start Date: 03/04/15 Status: Ordered Viagra 100 mg oral tablet [...] Author: Ramesh Graf JR, MD Date : 08/23/14 Follow Up With: Where: When: Marco Antonio [address]; Via [facility] [place] [address] Business (1) Within 3 to 5 days Comments: Follow Up With: Where: When: Ramesh Graf [address] [place] [address] [address]; Via [facility] [place] [address] Business (1[facility] In 6 months 02/23/2015 Comments: Extracted from: Title: Office Visit Note Author: Ramesh Graf JR, MD Date: 08/23/14 Assessment/Plan Personal history of prostate cancer Also history of bladder neck contractures status post cystoscopy and urethral dilatation. He is voiding well. Recheck in my office in 6 months PSA a week before next visit. 15 minute face to face visit with 2/3 of the visit devoted to counseling. . Ordered: Office Visit Level 3 Est 92756
--- OUTSIDE RECORDS SUMMARY | 2016-08-10 10:15 | XMS REPORT | Referral Summary ---
Author Author [facility], Family Medicine Organization [facility] Address Unknown Phone Unavailable Care Team Providers Care Video Engineer Name Role Phone Michelle Victoria Primary Care Physician [phone] Encounter VC Date(s): 06/24/15 - 06/24/15 [facility], [address] [place] [address] Discharge Diagnosis: Meralgia paresthetica of left side Discharge Disposition: 01-Home or Self Care Attending Physician: Luana Covington APRN Admitting Physician: Luana Covington APRN Vital Signs Most recent to 1 oldest [Reference Range]: Temperature Tympanic 36.7 degC [36.6-38.1 degC] (06/24/15 10:39 AM) Peripheral Pulse 76 bpm Rate [60-100 bpm] (06/24/15 10:39 AM) Blood Pressure 122/80 mmHg [90-140/60-90 mmHg] (06/24/15 10:39 AM) Problem List Condition Effective Dates Status [...] Daily, # 90 tabs, 3 Refill(s), Pharmacy: [facility] Start Date: 07/12/14 Status: Ordered multivitamin Daily, 0 Refill(s) Start Date: 01/22/14 Status: Ordered Naprosyn 500 mg oral tablet 500 mg 1 tabs, Oral, BID, Pain Moderate (4-6), # 180 tabs, 0 Refill(s), Pharmacy : [facility] #[id number], 1 tabs Oral BID,PRN:Pain Moderate (4-6) Start Date: 06/24/15 Status: Ordered pravastatin 40 mg oral tablet See Instructions, TAKE 1 TABLET DAILY, # 90 tabs, eRx: [facility], TAKE 1 TABLET DAILY Start Date: 06/03/15 Status: Ordered Results No data available for [...] and Plan Extracted from: Title: Office Visit Note-meralgia Author: Luana Covington GRILL ASSOCIATE Date: paresthetica Assessment/Plan Meralgia paresthetica of left side Restart naproxen 500 mg one tablet twice a day as needed. Encourage patient to avoid wearing tight belt. Anything restricts that area. Refer to Dr. Freeman for further evaluation and treatment options. Office visit if symptoms get worse or weaknessdevelops. Orders: naproxen, 500 mg 1 tabs, Oral, BID, Pain Moderate (4-6), # 180 tabs, 0 Refill(s), [id number], 1 tabs Oral BID,PRN:Pain Moderate (4-6) Internal Referral to Pain Specialist
--- OUTSIDE RECORDS SUMMARY | 2016-08-10 10:15 | XMS REPORT | Referral Summary ---
Author Author [facility], Family Medicine Organization [facility] Address Unknown Phone Unavailable Care Team Providers Care Cheese Cutter Name Role Phone Michelle Victoria Primary Care Physician [phone] Encounter Date(s): 07/22/15 - 07/22/15 [facility], [address] [place] [id number] Discharge Diagnosis: Meralgia paresthetica of left side Discharge Diagnosis: LUE weakness Discharge Diagnosis: Pain in left hip Discharge Disposition: 01-Home or Self Care Attending Physician: Luana Covington APRN Admitting Physician: Luana Covington APRN Vital Signs Most recent to 1 oldest [Reference Range]: Temperature Tympanic 36.5 degC [36.6-38.1 degC] *LOW* (07/22/15 2:18 PM) Peripheral Pulse 84 bpm Rate [60-100 bpm] (07/22/15 2:18 PM) Respiratory Rate 16 br/min [14-20 br/min] (07/22/15 2:18 PM) Blood Pressure 142/84 mmHg [90-140/60-90 mmHg] *HI* (07/22/15 2:18 PM) Problem List Condition Effective Dates Status [...] needed, # 90 Each, 0 Refill(s), Pharmacy: [facility] #[id number], 1 -3 caps Oral TID as needed, PRN:Pain Moderate (4-6) Start Date: 07/22/15 Status: Ordered losartan-hydrochlorothiazide 100 mg-12.5 mg oral tablet 1 tabs, Oral, Daily, # 90 tabs, 1 Refill(s), Pharmacy: [facility] Start Date: 07/02/15 Status: Ordered multivitamin Daily, 0 Refill(s) Start Date: 01/22/14 Status: Ordered Naprosyn 500 mg oral tablet 500 mg 1 tabs, Oral, BID, Pain Moderate (4-6), # 180 tabs, 0 Refill(s), Pharmacy : [facility] #[id number], 1 tabs Oral BID,PRN:Pain Moderate (4-6) Start Date: 06/24/15 Status: Ordered pravastatin 40 mg oral tablet See Instructions, TAKE 1 TABLET DAILY, # 90 tabs, eRx: [facility], TAKE 1 TABLET DAILY Start Date: 06/03/15 Status: Ordered Tylenol Extra Strength mg, Oral, [...] and Plan Extracted from: Title: Office Visit Note-hip pain Author: Luana Covington ADVERTISING SPACE CLERK Date: 02/25 Assessment/Plan 1.LUE weakness Discussed with the patient multiple etiologies and causes for his symptoms. Osteoarthritis, trochanteric bursitis, IT band tendinitis, nerve impingement, meralgia paresthetica. Certainly could have more than one thing going on at a time. Recommend MRI of the lumbar spinedue to the sensation of weakness and numbness along the left anterior thigh. Recommend he continue the naproxen twice a day. He has an appointment with Dr. Freeman for August 01. Encouraged him to keep that appointment. Certainly the MRI will help rule out and identify possible causes of his symptoms. If musculoskeletal workup is negative would consider workup for intermittent claudication. Trial of gabapentin 100-300 mg 3 times a day as needed for pain. Cautioning against drowsiness. Ordered: MRI Spine Lumbar w/o Contrast Office Visit Level 3 Est 76140 2.Pain in left hip Ordered: Office Visit Level 3 Est 20635 Meralgia paresthetica of left side Ordered: Office Visit Level 3 Est 22084 Orders: gabapentin, See Instructions, Pain Moderate (4-6), 1 -3 caps Oral TID as needed, # 90 Each, 0 Refill(s), Pharmacy: [facility] #[id number], 1 -3 caps Oral TID as needed,PRN:Pain Moderate (4-6)
--- OUTSIDE RECORDS SUMMARY | 2016-08-10 10:15 | XMS REPORT | Referral Summary ---
Author Author [facility], Family Medicine Organization [facility] Address Unknown Phone Unavailable Care Team Providers Care Gas Cutting Machine Operator Name Role Phone Michelle Vicotria Primary Care Physician [phone] Encounter VC Date(s): 01/21/16 - 01/21/16 [facility] Newton, [address] [place] [address] Discharge Diagnosis: Atypical pigmented skin lesion Discharge Disposition: 01-Home or Self Care Attending Physician: Luana Covington APRN Admitting Physician: Luana Covington APRN Vital Signs Most recent to 1 oldest [Reference Range]: Temperature Tympanic 36.5 degC [36.6-38.1 degC] *LOW* (01/21/16 1:53 PM) Peripheral Pulse 88 bpm Rate [60-100 bpm] (01/21/16 1:53 PM) Respiratory Rate 16 br/min [14-20 br/min] (01/21/16 1:53 PM) Blood Pressure 124/70 mmHg [90-140/60-90 mmHg] (01/21/16 1:53 PM) Problem List Condition Effective Dates Status [...] Daily, # 90 tabs, 3 Refill(s), Pharmacy: [facility] Start Date: 09/27/15 Status: Ordered multivitamin Daily, 0 Refill(s) Start Date: 01/22/14 Status: Ordered [place] 5 mg-325 mg oral tablet 1 tabs, Oral, q6hr, as needed for pain, # 90 tabs, 0 Refill(s) Start Date: 09/11/15 Stop Date: 10/11/15 Status: Ordered pravastatin 40 mg oral tablet See Instructions, TAKE 1 TABLET DAILY, # 90 tabs, 3 Refill(s), Pharmacy: [facility], TAKE 1 TABLET DAILY Start Date: 09/27/15 Status: Ordered Results No data available for this section Immunizations Vaccine Date Refusal Reason tetanus/diphth/pertuss (Tdap) adult/adol 01/07/16 tetanus/diphth/pertuss (Tdap) adult/adol 11/24/05 influenza virus vaccine, live 05/29/13 pneumococcal 23-polyvalent vaccine 05/29/13 zoster vaccine live 04/02/11 Procedures Procedure Date Related Diagnosis Body Site Destruction (eg, laser surgery, 01/21/16 electrosurgery, cryosurgery, chemosurgery, surgical curettement), premalignant lesions (eg, actinic keratoses); first lesion COLORECTAL CANCER SCREENING; COLONOSCOPY ON 08/15/15 INDIVIDUAL [...] and Plan Extracted from: Title: Office Visit Note-skin Author: Luana Covington TUCK POINTER Date: lesion Assessment/Plan 1.Atypical pigmented skin lesion Discussed cryotherapy as a treatment option. Patient agreeable. Verbal consent is obtained. Risk and benefits reviewed. Cryotherapy utilized in 3 freeze thaw cycles tothe lesion. Post-cryotherapy care discussed. Call with any problems. Gave him a handout regarding auto painter that he can research as he desires if he wants to pursue any further injections or treatment options. He was seen Dr. Freemanbut Dr. Freeman is leaving the area.
--- OUTSIDE RECORDS SUMMARY | 2016-08-10 10:15 | XMS REPORT | Referral Summary ---
Author Author [facility] Organization [facility] Address Unknown Phone Unavailable Care Team Providers Care Welt Insole Channeler Name Role Phone Michelle Victoria Primary Care Physician [phone] Encounter VC Date(s): 08/23/14 - 08/23/14 [facility], Urology [address] [place] [address] [place] [address]- Discharge Diagnosis: Personal history of prostate cancer [...] # 18 tabs, 3 Refill(s) , Pharmacy: [facility], 1 tabs Oral Daily,PRN:as needed for erectile dysfunction Start Date: 07/12/14 Status: Ordered losartan-hydrochlorothiazide 100 mg-12.5 mg oral tablet 1 tabs, Oral, Daily, # 90 tabs, 3 Refill(s), Pharmacy: [facility] Start Date: 07/12/14 Status: Ordered multivitamin Daily, 0 Refill(s) Start Date: 01/22/14 Status: Ordered pravastatin 40 mg oral tablet See Instructions, TAKE 1 TABLET DAILY, # 90 tabs, 1 Refill(s), Pharmacy: [facility], TAKE 1 TABLET DAILY Start Date: 08/27/14 Status: Ordered Viagra 100 mg oral tablet [...] Up With: Where: When: Marco Antonio Victoria [address] [place] [address] Drive; [place] [address] Business (1) Within 3 to 5 days Comments: Follow Up With: Where: When: Ramesh Graf [address] [place] [address] [address]; Via [facility] [place] [address] [facility] (1) In 6 months 02/23/2015 Comments: Extracted from: [...] . Ordered: Office Visit Level 3 Est 26048
--- OUTSIDE RECORDS SUMMARY | 2016-08-10 10:15 | XMS REPORT | Referral Summary ---
Author Author [facility] Organization [facility] Address Unknown Phone Unavailable Care Team Providers Care Rubber Curer Name Role Phone Michelle Victoria Primary Care Physician [phone] Encounter Date(s): 08/19/15 - 08/19/15 [facility] [address] [place], [place] [address] Discharge Diagnosis: Meralgia paresthetica Discharge Diagnosis: DJD (degenerative joint disease) of knee Discharge Disposition: 01-Home or Self Care Attending Physician: Temo Freeman MD Admitting Physician: Temo Freeman MD Referring Physician: Marco Antonio Victoria MD Vital Signs Most recent to 1 oldest [Reference Range]: Blood Pressure 133/94 mmHg [90-140/60-90 mmHg] (08/19/15 12:49 PM) Problem List Condition Effective Dates Status Health Status Informant Achilles 04/12/11 - 03/21/14 Resolved bursitis/tendonitis( Confirmed) Allergic Active rhinitis(Confirmed) Hay fever(Confirmed) Active Benign essential Resolved hypertension (disorder)(Confirmed ) DDD (degenerative Active disc disease), lumbar(Confirmed) Diverticulitis of Active colon with bleeding(Confirmed)1 Dyslipidemia(Confirm Active ed) Enthesopathy of hip Active region(Confirmed) History of prostate Active cancer(Confirmed) Hypertension(Confirm Active ed) Erectile Active dysfunction(Confirme d) Lumbar Active radiculopathy(Confir med) Meralgia Active paresthetica(Confirm ed) Mixed hyperlipidemia Resolved (disorder)(Confirmed ) Obesity(Confirmed) Active patient DJD (degenerative Active joint disease) of knee(Confirmed) Lumbar disc Active herniation(Confirmed ) Lumbar spinal Active stenosis(Confirmed) 1colonoscopy 08/15/15 GI bleeding-probable cause. No source identiified. Allergies, Adverse Reactions, Alerts Substance Reaction Severity Status AmLODIPine Besylate EDEMA Active Medications losartan-hydrochlorothiazide 100 mg-12.5 mg oral tablet 1 tabs, Oral, Daily, # 90 tabs, 1 Refill(s), Pharmacy: [facility] Start Date: 07/02/15 Status: Ordered Lyrica 75 mg oral capsule 75 mg 1 caps, Oral, BID, # 60 caps, 0 Refill(s), samples given to patient (Rx) Start Date: 08/08/15 Status: Ordered multivitamin Daily, 0 Refill(s) Start Date: 01/22/14 Status: Ordered [place] 5 mg-325 mg oral tablet 1 tabs, Oral, q6hr, as needed for pain, # 30 tabs, 0 Refill(s) Start Date: 08/08/15 Status: Ordered pravastatin 40 mg oral tablet See Instructions, TAKE 1 TABLET DAILY, # 90 tabs, eRx: [facility], TAKE 1 TABLET DAILY Start Date: 06/03/15 Status: Ordered Results No data available for this section Immunizations Vaccine Date Refusal Reason tetanus/diphth/pertuss (Tdap) adult/adol 11/24/05 influenza virus vaccine, live 05/29/13 pneumococcal 23-polyvalent vaccine 05/29/13 zoster vaccine live 04/02/11 Procedures Procedure Date Related Diagnosis Body Site Arthrocentesis, aspiration and/or injection, 08/19/15 major joint or bursa (eg, shoulder, hip, knee, subacromial bursa); without ultrasound guidance Injection, anesthetic agent; other peripheral 08/19/15 nerve or branch.. Colonoscopy abnormal1 08/15/15 Incision and drainage of abscess of neck2 05/04/14 Radical prostatectomy 09/11/07 Colonoscopy 09/08/07 Cystoscopy3 08/15/07 TURP - Redo transurethral resection of prostate 1s/p GI bleed. Probable diverticular bleed 2DELAYED SECONDARY CLOSURE OF 5CM WOUND INVOLVING POSTIER NECK. 3transrectal needle prostate bx and vasectomy Social History Social History Type Response Smoking Status Never smoker Assessment and Plan No data available for this section
--- OUTSIDE RECORDS SUMMARY | 2016-08-10 10:16 | XMS REPORT | Referral Summary ---
Author Author [facility] Organization [facility] Address Unknown Phone Unavailable Care Team Providers Care Recycling Center Operator Name Role Phone Julien Michelle Primary Care Physician [phone] Encounter VC Date(s): 08/16/15 - 08/16/15 [facility] [address] [place], [place] [address] Discharge Disposition: 01-Home or Self Care Attending Physician: Leticia Jovel PA-C Admitting Physician: Leticia Jovel PA-C Vital Signs Most recent to 1 oldest [Reference Range]: Temperature Oral 36.6 degC [35.8-37.3 degC] (08/16/15 10:12 AM) Blood Pressure 136/80 mmHg [90-140/60-90 mmHg] (08/16/15 10:12 AM) Problem List Condition Effective Dates Status Health Status Informant Achilles 04/12/11 - 03/21/14 Resolved bursitis/tendonitis( Confirmed) Allergic Active rhinitis(Confirmed) Hay fever(Confirmed) Active Benign essential Resolved hypertension (disorder)(Confirmed ) Diverticulitis of Active colon with bleeding(Confirmed)1 Dyslipidemia(Confirm Active ed) Enthesopathy of hip Active region(Confirmed) History of prostate Active cancer(Confirmed) Hypertension(Confirm Active ed) Erectile Active dysfunction(Confirme d) Meralgia Active paresthetica(Confirm ed) Mixed hyperlipidemia Resolved (disorder)(Confirmed ) Obesity(Confirmed) Active patient 1colonoscopy 08/15/15 GI bleeding-probable cause. No source identiified. Allergies, Adverse Reactions, Alerts Substance Reaction Severity Status AmLODIPine Besylate EDEMA Active Medications losartan-hydrochlorothiazide 100 mg-12.5 mg oral tablet 1 tabs, Oral, Daily, # 90 tabs, 1 Refill(s), Pharmacy: [facility] Start Date: 07/02/15 Status: Ordered Lyrica 75 mg oral capsule 75 mg 1 caps, Oral, BID, # 60 caps, 0 Refill(s), samples given to patient (Rx) Start Date: 08/08/15 Status: Ordered multivitamin Daily, 0 Refill(s) Start Date: 01/22/14 Status: Ordered [place] 5 mg-325 mg oral tablet 1 tabs, Oral, q6hr, as needed for pain, # 30 tabs, 0 Refill(s) Start Date: 08/08/15 Status: Ordered pravastatin 40 mg oral tablet See Instructions, TAKE 1 TABLET DAILY, # 90 tabs, eRx: [facility], TAKE 1 TABLET DAILY [...] Procedures Procedure Date Related Diagnosis Body Site Colonoscopy abnormal1 08/15/15 Incision and drainage of [...]
--- OUTSIDE RECORDS SUMMARY | 2016-08-10 10:16 | XMS REPORT | Referral Summary ---
Author Author [facility] Organization [facility] Address Unknown Phone Unavailable Care Team Providers Care Eco Industrial [employer] Consultant Name Role Phone Michelle Victoria Primary Care Physician [phone] Encounter VC Date(s): 08/23/14 - 08/23/14 [facility] [address] [place] [address] [place] [address]- Discharge Diagnosis: Personal history of prostate cancer [...] # 18 tabs, 3 Refill(s) , Pharmacy: [facility], 1 tabs Oral Daily,PRN:as needed for erectile dysfunction Start Date: 07/12/14 Status: Ordered losartan-hydrochlorothiazide 100 mg-12.5 mg oral tablet 1 tabs, Oral, Daily, # 90 tabs, 3 Refill(s), Pharmacy: [facility] Start Date: 07/12/14 Status: Ordered multivitamin Daily, 0 Refill(s) Start Date: 01/22/14 Status: Ordered pravastatin 40 mg oral tablet See Instructions, TAKE 1 TABLET DAILY, # 90 tabs, 1 Refill(s), Pharmacy: [facility], TAKE 1 TABLET DAILY Start [...] Up With: Where: When: Marco Antonio Victoria [address] [place] [address] Drive; [place] [address] Business (1) Within 3 to 5 days Comments: Follow Up With: Where: When: Ramesh Graf [address] [place] [address] [address]; Via [facility] [place] [address] [employer] (1) In 6 months 02/23/2015 Comments: Extracted [...] . Ordered: Office Visit Level 3 Est [address]891
--- OUTSIDE RECORDS SUMMARY | 2016-08-10 10:16 | XMS REPORT | Referral Summary ---
Author Author [facility] Organization [facility] Address Unknown Phone Unavailable Care Team Providers Care Mobile Heavy Equipment Operator Name Role Phone Michelle Victoria Primary Care Physician [phone] Encounter VC Date(s): 08/08/15 - 08/08/15 [facility] [address] [place] [address] Discharge Diagnosis: DDD (degenerative disc disease), lumbar Discharge Diagnosis: Lumbosacral radiculopathy Discharge Disposition: 01-Home or Self Care Attending Physician: Marco Antonio Victoria MD Admitting Physician: Marco Antonio Victoria MD Vital Signs Most recent to 1 oldest [Reference Range]: Temperature Tympanic 36.7 degC [36.6-38.1 degC] (08/08/15 2:11 PM) Peripheral Pulse 76 bpm Rate [60-100 bpm] (08/08/15 2:11 PM) Blood Pressure 114/78 mmHg [90-140/60-90 mmHg] (08/08/15 2:11 PM) Problem List Condition Effective Dates Status [...] needed, # 90 Each, 0 Refill(s), Pharmacy: [facility] #[id number], 1 -3 caps Oral TID as needed, PRN:Pain Moderate (4-6) Start Date: 07/22/15 Status: Ordered losartan-hydrochlorothiazide 100 mg-12.5 mg oral tablet 1 tabs, Oral, Daily, # 90 tabs, 1 Refill(s), Pharmacy: [facility] Start Date: 07/02/15 Status: Ordered Lyrica 75 mg oral capsule 75 mg 1 caps, Oral, BID, # 60 caps, 0 Refill(s), samples given to patient (Rx) Start Date: 08/08/15 Status: Ordered multivitamin Daily, 0 Refill(s) Start Date: 01/22/14 Status: Ordered Naprosyn 500 mg oral tablet 500 mg 1 tabs, Oral, BID, Pain Moderate (4-6), # 180 tabs, 0 Refill(s), Pharmacy : [facility] #[id number], 1 tabs Oral BID,PRN:Pain Moderate (4-6) Start Date: 06/24/15 Status: Ordered [place] 5 mg-325 mg oral tablet 1 tabs, Oral, q6hr, as needed for pain, # 30 tabs, 0 Refill(s) Start Date: 08/08/15 Status: Ordered pravastatin 40 mg oral tablet See Instructions, TAKE 1 TABLET DAILY, # 90 tabs, eRx: [facility], TAKE 1 TABLET DAILY Start Date: 06/03/15 Status: Ordered predniSONE 10 mg oral tablet See Instructions, 40 mg x3 days , 30mg x3 days, 20mg x3 days, 10mg x3 days, # 30 tabs, 0 Refill(s), Pharmacy: [facility] #[id number], 40 mg x3 days , 30mg x3 [...] Extracted from: Title: Office Visit Note Author: Marco Antonio Victoria MD Date: 08/08/15 Assessment/Plan DDD (degenerative disc disease), lumbar, Other intervertebral disc degeneration, lumbar region I've recommended Lyrica 75 mg twice a dayand hydrocodone as needed for pain. I encouraged him to continue to take some naproxen and proceed with physical therapy as directed by Dr. Freeman. Samples of the Lyrica were given and we can call out a prescription at that seems to be helpful. I did discuss side effects with him as well. If no improvement or further problems develop follow-up. Ordered: Office Visit Level 3 Est 22470 Lumbosacral radiculopathy, Radiculopathy, lumbosacral region See aboveplan. Ordered: Office Visit Level 3 Est 95616 Orders: HYDROcodone-acetaminophen, 1 tabs, Oral, q6hr, as needed for pain, # 30 tabs, 0 Refill(s) pregabalin, 75 mg 1 caps, Oral, BID, # 60 caps, 0 Refill(s), samples given to patient (Rx)
--- OUTSIDE RECORDS SUMMARY | 2016-08-10 10:16 | XMS REPORT | Referral Summary ---
Author Author [facility] Organization [facility] Address Unknown Phone Unavailable Care Team Providers Care Food Service Order Clerk Name Role Phone Michelle Victoria Primary Care Physician [phone] Encounter VC Date(s): 05/09/15 - 05/09/15 [facility], [address] [place] [address] Discharge Diagnosis: Meralgia paresthetica of left side Discharge Disposition: 01-Home or Self Care Attending Physician: Luana Covington APRN Admitting Physician: Luana Covington APRN Vital Signs Most recent to 1 oldest [Reference Range]: Temperature Tympanic 36.4 degC [36.6-38.1 degC] *LOW* (05/09/15 8:18 AM) Peripheral Pulse 84 bpm Rate [60-100 bpm] (05/09/15 8:18 AM) Blood Pressure 122/76 mmHg [90-140/60-90 mmHg] (05/09/15 8:18 AM) Problem List Condition Effective Dates Status [...] Refill(s), [facility] Start Date: 07/12/14 Status: Ordered multivitamin Daily, 0 Refill(s) Start Date: 01/22/14 Status: Ordered naproxen 500 mg oral tablet 500 mg 1 tabs, Oral, BID, # 60 tabs, 0 Refill(s), Pharmacy: [facility] # [id number], 1 tabs Oral BID Start Date: 05/09/15 Status: Ordered pravastatin 40 mg oral tablet See Instructions, TAKE 1 TABLET DAILY, # 90 Each, 3 Refill(s), Pharmacy: [facility], TAKE 1 [...] and Plan Extracted from: Title: Office Visit Note-neuropathy Author: Luana Covington APRN Date: 05/09/15 Assessment/Plan 1.Meralgia paresthetica of left side Patient counseled regarding diagnosis, natural history, pathophysiology, typical treatment, and expected results. Questions and concerns answered. Discussed the possibility ofL2 or L3 nerve impingementalso. He develops any worsening symptoms orweaknesswould recommend MRI. Naproxen twice a day for a month. Take with food. Discussed avoid wearing tightbelts/tight clothing. Requested call and give me an update on his symptoms in a few weeks. May benefit from an appointment to Dr. Freeman for possiblecortisone injection/nerve block. Ordered: Office Visit Level 3 Est 01861 Orders: naproxen, 500 mg 1 tabs, Oral, BID, # 60 tabs, 0 Refill(s), Pharmacy: [facility] #[id number], 1 tabs Oral BID
--- OUTSIDE RECORDS SUMMARY | 2016-08-10 10:16 | XMS REPORT | Referral Summary ---
Author Author [facility] Organization [facility] Address Unknown Phone Unavailable Care Team Providers Care Sand Molder Name Role Phone Michelle Victoria Primary Care Physician [phone] Encounter Date(s): 08/20/15 - 08/20/15 [facility] [address] [place] [address] Discharge Diagnosis: Diverticulitis of colon with bleeding Discharge Diagnosis: Meralgia paresthetica of left side Discharge Diagnosis: DJD (degenerative joint disease) of knee Discharge Diagnosis: Left anterior knee pain Discharge Diagnosis: Lumbar radiculopathy Discharge Diagnosis: Elevated glucose Discharge Disposition: 01-Home or Self Care Attending Physician: Luana Covington APRN Admitting Physician: Luana Covington APRN Vital Signs Most recent to 1 oldest [Reference Range]: Temperature Tympanic 36.9 degC [36.6-38.1 degC] (08/20/15 1:29 PM) Peripheral Pulse 72 bpm Rate [60-100 bpm] (08/20/15 1:29 PM) Blood Pressure 134/72 mmHg [90-140/60-90 mmHg] (08/20/15 1:29 PM) Problem List Condition Effective Dates Status [...] Daily, # 90 tabs, 1 Refill(s), Pharmacy: [facility] Start Date: 07/02/15 Status: Ordered Lyrica 75 mg oral capsule 75 mg 1 caps, Oral, BID, # 60 caps, 0 Refill(s), samples given to patient (Rx) Start Date: 08/08/15 Status: Ordered multivitamin Daily, 0 Refill(s) Start Date: 01/22/14 Status: Ordered [place] 5 mg-325 mg oral tablet 1 tabs, Oral, q6hr, as needed for pain, # 90 tabs, 0 Refill(s) Start Date: 08/20/15 Stop Date: 09/19/15 Status: Ordered pravastatin 40 mg oral tablet See Instructions, TAKE 1 TABLET DAILY, # 90 tabs, eRx: [facility], TAKE 1 TABLET DAILY Start Date: 06/03/15 Status: Ordered Results Hematology Most recent to 1 oldest [Reference Range]: WBC [5.0-10.0 18.9 10*3/uL 10*3/uL] *HI* (08/20/15 2:20 PM) RBC [3.70-5.20] 4.89 (08/20/15 2:20 PM) Hgb [12.0-16.0 15.3 gm/dL gm/dL] (08/20/15 2:20 PM) Hct [40.0-54.0 %] 44.5 % (08/20/15 2:20 PM) MCV [80.0-96.0 fL] 91.0 fL (08/20/15 2:20 PM) MCH [26.0-34.0 pg] 31.3 pg (08/20/15 2:20 PM) MCHC [32.0-36.0 34.4 gm/dL gm/dL] (08/20/15 2:20 PM) RDW [0.0-14.5 %] 13.2 % (08/20/15 2:20 PM) Platelet [150-400 307 10*3/uL 10*3/uL] (08/20/15 2:20 PM) MPV [8.8-14.8 fL] 10.8 fL (08/20/15 2:20 PM) Neutrophils [50-70 80 % %] *HI* (08/20/15 2:20 PM) Band Man [0-6 %] 5 % (08/20/15 2:20 PM) Lymphocytes [20-40 9 % %] *LOW* (08/20/15 2:20 PM) Abn Lymph Man [-1-0 1 % %] *HI* (08/20/15 2:20 PM) Monocytes [4-8 %] 5 % (08/20/15 2:20 PM) Eosinophils [0-6 %] 0 % (08/20/15 2:20 PM) Basophils [0-2 %] 0 % (08/20/15 2:20 PM) Neutro Absolute 16.07 10*3 [2.50-7.00 10*3] *HI* (08/20/15 2:20 PM) Lymph Absolute 1.89 10*3 [1.00-4.00 10*3] (08/20/15 2:20 PM) Brown Absolute 0.95 10*3 [0.20-0.80 10*3] *HI* (08/20/15 2:20 PM) Eos Absolute 0.00 10*3 [0.00-0.60 10*3] (08/20/15 2:20 PM) Baso Absolute 0.00 [0.00-0.30] (08/20/15 2:20 PM) Differential Manual *ABN* (08/20/15 2:20 PM) Chemistry Most recent to 1 oldest [Reference Range]: Hgb A1c [4.1-5.6 %] 5.6 % (08/20/15 2:20 PM) eAvg Glucose 114.0 mg/dL (08/20/15 2:20 PM) Immunizations Vaccine Date Refusal Reason tetanus/diphth/pertuss (Tdap) adult/adol 11/24/05 influenza virus vaccine, live 05/29/13 pneumococcal 23-polyvalent vaccine 05/29/13 zoster vaccine live 04/02/11 Procedures Procedure Date Related Diagnosis Body Site Collection of venous blood by venipuncture 08/20/15 Colonoscopy abnormal1 08/15/15 Incision and drainage of [...] and Plan Extracted from: Title: Office Visit Note-Hosp Author: Luana Covington LAMINATION OPERATOR Date: f/u/knee pain Assessment/Plan Diverticulitis of colon with bleeding Clinically improved. CBC today. Recommend stool softenerfor mild constipation. Avoid NSAIDs and aspirin. Notify office if he has any recurrent symptoms. Ordered: CBC w/ Differential DJD (degenerative joint disease) of knee X-rays negative for arthritic changes. Results discussed with patient. Elevated glucose Lab as ordered. Encouraged healthy diet. Follow-up in the office in 3-4 months for chronic disease management. Sooner if other issues arise. Ordered: Hemoglobin A1c Left anterior knee pain Due to progression in severity of painrecommend MRI of the knee. Discussed with patient I certainly thinka component of his knee pain could be related tomuscle atrophyand change in gaitdue to his otherproblems. Physical therapy should help with that. Refill provided for [place] one by mouth every 6 hours when necessary. Avoid NSAIDs and aspirin Lumbar radiculopathy Minimally symptomatic at this time. Meralgia paresthetica of left side Symptomatically improved after cortisone injection. Planning to start physical therapy this week. Orders: HYDROcodone-acetaminophen, 1 tabs, Oral, q6hr, as needed for pain, # 90 tabs, 0 Refill(s) Result type:XR Knee 1 or 2 Views Left Result date:August 16, 2015 11:17 CDT Result status:Auth (Verified) Result title:XR Knee 1 or 2 Views Left Performed by:Alejandro Hogue MD on August 16, 2015 11:17 CDT Verified by:Alejandro Hogue MD on August 16, 2015 13:38 CDT Encounter info:[id number], [facility], [facility], 08/16/2015 - * Final Report * Reason For Exam Pain in joint, knee REPORT INDICATION: Pain in the knee joint. Frontal and lateral standing radiographs of the left knee are performed. TIME OF EXAM: 11:20 AM. COMPARISON: None available. FINDINGS: Negative for joint effusion. The joint spaces are within normal limits. There is no periarticular calcification, erosion or chondrocalcinosis. No focal osteolytic or osteoblastic abnormality is identified. IMPRESSION: 1. No significant left knee abnormality. Dictated on workstation:[id number] Signature Line Final Dictated by: Alejandro Hogue MD Dictated DT/TM: 08/16/2015 11:17 am Signed by: Alejandro Hogue MD Signed (Electronic Signature): 08/16/2015 1:38 pm Technologist: Dawna Martin IMAGE This document has an image [1]
--- OUTSIDE RECORDS SUMMARY | 2016-08-10 10:16 | XMS REPORT | Referral Summary ---
Author Author [facility] Organization [facility] Address Unknown Phone Unavailable Care Team Providers Care Greenkeeper Name Role Phone Michelle Victoria Primary Care Physician [phone] Encounter Date(s): 01/07/16 - 01/07/16 [facility], [address] [place] [address]- Discharge Diagnosis: Hypertension Discharge Diagnosis: Dyslipidemia Discharge Diagnosis: DDD (degenerative disc disease), lumbar Discharge Diagnosis: Meralgia paresthetica Discharge Diagnosis: Obesity Discharge Diagnosis: Diverticulitis of colon with bleeding Discharge Diagnosis: Atypical pigmented skin lesion Discharge Diagnosis: Prediabetes Discharge Disposition: 01-Home or Self Care Attending Physician: Luana Covington APRN Admitting Physician: Luana Covington APRN Vital Signs Most recent to 1 oldest [Reference Range]: Temperature Tympanic 36.9 degC [36.6-38.1 degC] (01/07/16 3:50 PM) Peripheral Pulse 84 bpm Rate [60-100 bpm] (01/07/16 3:50 PM) Blood Pressure 136/74 mmHg [90-140/60-90 mmHg] (01/07/16 3:50 PM) Problem List Condition Effective Dates Status [...] Daily, # 90 tabs, 3 Refill(s), Pharmacy: [facility] Start Date: 09/27/15 Status: Ordered multivitamin Daily, 0 Refill(s) Start Date: 01/22/14 Status: Ordered [place] 5 mg-325 mg oral tablet 1 tabs, Oral, q6hr, as needed for pain, # 90 tabs, 0 Refill(s) Start Date: 09/11/15 Stop Date: 10/11/15 Status: Ordered pravastatin 40 mg oral tablet See Instructions, TAKE 1 TABLET DAILY, # 90 tabs, 3 Refill(s), Pharmacy: [facility], TAKE 1 TABLET DAILY Start [...] Visit Note-CDM Author: Luana Covington APRN Date: 01/07/16 Assessment/Plan 1.Hypertension Currently well controlled. Continue same.CDM report card completed and reviewed with patient. Last labs reviewed with patient. Recommendations discussed. Copy provided. Plan follow-up in 6 months or sooner if medical needs arise. 2.Dyslipidemia Well controlled. Continue statin. Encourage healthy dietand increasing physical activity and weight loss. 3.DDD (degenerative disc disease), lumbar Discussed good body mechanics and strengthening abdominal core muscles which can certainly benefit to have low back pain. Encouraged him to work with physical therapy. Let me know if he gets worse. 4.Meralgia paresthetica Minimally symptomatic after nerve block. No further intervention for now. 5.Obesity Encourage healthy eating, physical activity and weight loss 5- 10 pounds in the next 6 months. 6.Prediabetes As above. Check hemoglobin A1c in 6 months. 7.Diverticulitis of colon with bleeding Currently quiet. Repeat CBC in 6 months for monitoring. 8.Atypical pigmented skin lesion Suspect seborrheic keratosis. Recommend cryotherapy based on location. Patient to schedule appointment with [facility] for him he is planning atrip later this week and prefers not to do that today. Counseled on Boostrix. Given by nursing. Not interested in influenza vaccine.
--- OUTSIDE RECORDS SUMMARY | 2016-08-10 10:16 | XMS REPORT | Referral Summary ---
Author Author [facility] Organization [facility] Address Unknown Phone Unavailable Care Team Providers Care Vibration Technician Name Role Phone Michelle Victoria Primary Care Physician [phone] Encounter VC Date(s): 08/22/14 - 08/22/14 [facility] [address] [place] [address] [place] [address] Discharge Diagnosis: Soft tissue mass Discharge Disposition: 01-Home or Self Care Attending Physician: Nick Ball MD Admitting Physician: Nick Ball MD Referring Physician: Nick Ball MD Vital Signs Most recent to 1 oldest [Reference Range]: Temperature Tympanic 36.9 degC [36.6-38.1 degC] (08/22/14 3:04 PM) Peripheral Pulse 72 bpm Rate [60-100 bpm] (08/22/14 3:04 PM) Respiratory Rate 20 br/min [14-20 br/min] (08/22/14 3:04 PM) Blood Pressure 126/74 mmHg [90-140/60-90 mmHg] (08/22/14 3:04 PM) Problem List Condition Effective Dates Status [...] # 18 tabs, 3 Refill(s) , Pharmacy: [facility], 1 tabs Oral Daily,PRN:as needed for erectile dysfunction Start Date: 07/12/14 Status: Ordered losartan-hydrochlorothiazide 100 mg-12.5 mg oral tablet 1 tabs, Oral, Daily, # 90 tabs, 3 Refill(s), Pharmacy: [facility] Start Date: 07/12/14 Status: Ordered multivitamin Daily, 0 Refill(s) Start Date: 01/22/14 Status: Ordered pravastatin 40 mg oral tablet See Instructions, TAKE 1 TABLET DAILY, # 90 tabs, 1 Refill(s), Pharmacy: [facility], TAKE 1 TABLET DAILY Start [...] Visit Note Author: Nick Ball MD Date: 08/22/14 Assessment/Plan Soft tissue mass Ordered: Office Visit Level 3 Est 25091 Plan: Conservative management at this time. Close clinical observation/follow -up. I informed the patient that he may have developed a small recurrence of his prior large sebaceous cyst. One perhaps could make an argument for proceeding with reexcision. Given the fact that this cyst is fairly deep within the posterior neck I do believe that this would have to be carried out an operative setting under some sedation. The other option would be is to follow this possible recurrent cyst from a clinical standpoint. If he began to i notice an ncrease in size of the cyst or if thisrecurrent cyst began to cause him an element of pain or discomfort than proceed with surgical excision at that time. Pros and cons of these options were discussed with the patient. Was concluded at this point time would follow the area of concern from a clinical standpoint and proceed with surgical excision at a later date if needed.
--- OUTSIDE RECORDS SUMMARY | 2016-08-10 10:16 | XMS REPORT | Referral Summary ---
Author Author [facility] Organization [facility] Address Unknown Phone Unavailable Care Team Providers Care Level Glass Forming Machine Operator Name Role Phone Michelle Victoria Primary Care Physician [phone] Encounter VC Date(s): 03/22/15 - 03/22/15 [facility] [address] [place] [address] [place] [address]- Discharge Diagnosis: Palpable mass of neck Discharge Disposition: 01-Home or Self Care Attending Physician: Nick Ball MD Admitting Physician: Nick Ball MD Referring Physician: Marco Antonio Victoria MD Vital Signs Most recent to 1 oldest [Reference Range]: Temperature Tympanic 37 degC [36.6-38.1 degC] (03/22/15 10:52 AM) Blood Pressure 118/76 mmHg [90-140/60-90 mmHg] (03/22/15 10:52 AM) Problem List Condition Effective Dates Status [...] Daily, # 90 tabs, 3 Refill(s), Pharmacy: [facility] Start Date: 07/12/14 Status: Ordered multivitamin Daily, 0 Refill(s) Start Date: 01/22/14 Status: Ordered pravastatin 40 mg oral tablet See Instructions, TAKE 1 TABLET DAILY, # 90 Each, 3 Refill(s), Pharmacy: [facility], TAKE 1 TABLET DAILY [...] Visit Note Author: Nick Ball MD Date: 03/22/15 Assessment/Plan 1.Palpable mass of neck Ordered: Office Visit Level 3 Est 16101 Plan:Excisional biopsy of 2 cm subcutaneous mass from posterior neck. I did review the patient's chart includingoffice note performed by myself from May 01s well as a follow-up visit from August 22, 2014. I informed the patient that he may haverecurrent sebaceous cyst. At the time of his originalexcision this area was quite inflamed and had already ruptured.He very well may have had a smallportion the cyst wall that persisted and has recurred.Given the fact that there is a palpable mass that is causing him some discomfort it was my recommendation that we proceed with repeat excisional biopsy.Patient understood and wished to proceed. The area of concern was prepped and draped in sterile fashion. One percent lidocaine with epinephrine was injected circumferentially around the underlying subcutaneous mass. Themass was excised in a standard elliptical fashion. The elliptical incision was 2 cm in width and 4 cm in length. I'll hold mass was excised in its entirety passed off table as surgical specimen. Hemostasis obtained withuse of electrocautery. The incision was closed in layers with 4-0 Vicryl subcuticular stitches and 4-0 Prolene for skin edges. The patient was given post excision instruction and told to return to the clinic in 10-14 days, or sooner if any concerns arise.
--- OUTSIDE RECORDS SUMMARY | 2016-08-10 10:16 | XMS REPORT | Referral Summary ---
Author Author [facility] Organization [facility] Address Unknown Phone Unavailable Care Team Providers Care Application Architect Manager Name Role Phone Michelle Victoria Primary Care Physician [phone] Encounter Date(s): 09/10/15 - 09/10/15 [facility] [address] [place], [place] [address] Discharge Diagnosis: Meralgia paresthetica Discharge Diagnosis: Knee pain, left Discharge Diagnosis: DDD (degenerative disc disease), lumbar Discharge Diagnosis: Lumbar disc herniation Discharge Diagnosis: Lumbar spinal stenosis Discharge Disposition: 01-Home or Self Care Attending Physician: Leticia Jovel PA-C Admitting Physician: Leticia Jovel PA-C Referring Physician: Marco Antonio Victoria MD Vital Signs Most recent to 1 oldest [Reference Range]: Temperature Oral 36.4 degC [35.8-37.3 degC] (09/10/15 3:30 PM) Blood Pressure 134/78 mmHg [90-140/60-90 mmHg] (09/10/15 3:30 PM) Problem List Condition Effective Dates Status [...] Daily, # 90 tabs, 1 Refill(s), Pharmacy: [facility] Start Date: 07/02/15 Status: Ordered Lyrica 75 mg oral capsule 75 mg 1 caps, Oral, BID, # 60 caps, 0 Refill(s), samples given to patient (Rx) Start Date: 08/08/15 Status: Ordered multivitamin Daily, 0 Refill(s) Start Date: 01/22/14 Status: Ordered Ledbetter 5 mg-325 mg oral tablet 1 tabs, Oral, q6hr, as needed for pain, # 90 tabs, 0 Refill(s) Start Date: 08/20/15 Stop Date: 09/19/15 Status: Ordered pravastatin 40 mg oral tablet See Instructions, TAKE 1 TABLET DAILY, # 90 tabs, 1 Refill(s), eRx: [facility], TAKE 1 TABLET DAILY Start Date: [...] Extracted from: Title: Office Visit Note Author: Leticia Jovel PA-C Date: 09/10/15 Assessment/Plan DDD (degenerative disc disease), lumbar Knee pain, left Lumbar disc herniation Lumbar spinal stenosis Meralgia paresthetica I discussed this patient's plan of care with Dr. Freeman. I also reviewed the patient's most recent lumbar MRIand left knee x-rays. According to this MRI the patient has left-sided disc herniation at L3 4 with mass effect on the left lateral recess andexit foramen. He recently had a leftlateral cutaneous nerve blockas well as a left intra-articular knee joint injection. He had significant relief with his nerve block, although did not feel that the left knee injection was particularly helpful.He had an MRI of his left knee this morning. He has a follow-upappointment for this tomorrow with his primary care provider.There is no current surgical indication and he does not feel that any further interventional treatments are needed at this time. The patient will follow-up here on an as-needed basis if symptoms worsen. The patient voiced understanding and agrees to the above plans. The above was in discussion with Dr. Freeman.
--- OUTSIDE RECORDS SUMMARY | 2016-08-10 10:16 | XMS REPORT | Referral Summary ---
Author Organization Unknown Address Unknown Phone Unavailable Care Team Providers Care Auto Driver Name Role Phone Kristen Carty JR Primary Care Physician [phone] Encounter VC Date(s): 05/14/14 - 05/14/14 [facility], Family [address] [place] [address] Discharge Diagnosis: Otitis externa Discharge Diagnosis: Diabetes Discharge Diagnosis: Dyslipidemia Discharge Diagnosis: Benign essential hypertension Discharge Diagnosis: Prostate cancer Discharge Diagnosis: History of prostate cancer Discharge Disposition: Home or Self Care Attending Physician: Luana Covington APRN Admitting Physician: Luana Covington APRN Vital Signs Most recent to 1 oldest [Reference Range]: Peripheral Pulse 72 bpm Rate [60-100 bpm] (05/14/14 2:09 PM) Blood Pressure 148/76 mmHg [90-140/60-90 mmHg] *HI* (05/14/14 2:09 PM) Problem List Condition Effective Dates Status [...] days, # 10 mL, 0 Refill(s), Pharmacy: [facility] #[id number] Start Date: 05/14/14 Stop Date: 05/21/14 Status: Ordered pravastatin 20 mg oral tablet [...] Extracted from: Title: Office Visit Note Author: Luana Covington CARE TRANSPORT NURSE Date: 05/14/14 Assessment/Plan Benign essential hypertension Recommend patient check his blood pressure 2- 3 times a week for the next few weeks. Let us know if it is consistently greater than 140/90 and we will adjust medications. He will be due for lab for chronic disease management. He will be available to come back in June. We' ll put orders in the computer for him to come for fasting lab. Enc wt loss and exercise. Ordered: Office Visit Level 4 Est 70398 Dyslipidemia Ordered: Office Visit Level 4 Est 28576 History of prostate cancer We'll check a PSA in June. Ordered: Office Visit Level 4 Est 11931 Otitis externa Eardrops 2 drops 4 times a day for 7 days. Discussed insulation. If fails to improve let us know. May use Tylenol or ibuprofen per package instructions for pain.. Ordered: Office Visit Level 4 Est 53501 Prostate cancer Ordered: Office Visit Level 4 Est 76520 Orders: neomycin/polymyxin B/hydrocortisone otic, 2 drops, Ear-Left, QID, X 7 days, # 10 mL, 0 Refill(s), Pharmacy: [facility] #[id number]
--- OUTSIDE RECORDS SUMMARY | 2016-08-10 10:16 | XMS REPORT | Referral Summary ---
Author Author [facility] Organization [facility] Address Unknown Phone Unavailable Care Team Providers Care Electronic Calibration Technician Name Role Phone Michelle Victoria Primary Care Physician [phone] Encounter VC Date(s): 08/23/14 - 08/23/14 [facility] [address] [place] [address] [place] [address]- Discharge Diagnosis: Personal history of prostate cancer [...] # 18 tabs, 3 Refill(s) , Pharmacy: [facility], 1 tabs Oral Daily,PRN:as needed for erectile dysfunction Start Date: 07/12/14 Status: Ordered losartan-hydrochlorothiazide 100 mg-12.5 mg oral tablet 1 tabs, Oral, Daily, # 90 tabs, 3 Refill(s), Pharmacy: [facility] Start Date: 07/12/14 Status: Ordered multivitamin Daily, 0 Refill(s) Start Date: 01/22/14 Status: Ordered pravastatin 40 mg oral tablet See Instructions, TAKE 1 TABLET DAILY, # 90 tabs, 1 Refill(s), Pharmacy: [facility], TAKE 1 TABLET DAILY Start [...] Up With: Where: When: Marco Antonio Victoria [address] [place] [address] Drive; [place] [address] Business (1) Within 3 to 5 days Comments: Follow Up With: Where: When: Ramesh Graf [address] [place] [address] [address]; Via [facility] [place] [address] [employer] (1) In 6 months 02/23/2015 Comments: Extracted [...] . Ordered: Office Visit Level 3 Est 76978
[2016-08-10 10:18] VITALS: Ht 167.6 cm; Wt 106.4 kg
[2016-08-10 10:19] VITALS: BP 145/79; PULSE 81; RESP 14; TEMP 98.2; O2SAT 94
[2016-08-10 10:25] LABS: BASOPHILS % (AUTO) 0.3 % (0-2); EOSINOPHILS # (AUTO) 0.1 T/MM3 (0-0.5); EOSINOPHILS % (AUTO) 1.3 % (0-4); HCT - HEMATOCRIT 47.4 % (41-53); HGB - HEMOGLOBIN 16.3 GM/DL (13.5-17.5); IMMATURE GRANULOCYTE # (AUTO) 0.02 T/MM3 (0.00-0.03); IMMATURE GRANULOCYTE % (AUTO) 0.3 % (0.0-0.5); LYMPHOCYTES # (AUTO) 1.2 T/MM3 (1-4.8); LYMPHOCYTES % (AUTO) 17.2 % (23-45); MEAN CORPUSCULAR HGB 31.2 UUG (26-34); MEAN CORPUSCULAR HGB CONC(MCHC 34.4 GM/DL (31-37); MEAN CORPUSCULAR VOLUME 90.8 UM3 (80-100); MEAN PLATELET VOLUME 11.1 UM3 (9.4-12.4); MONOCYTES # (AUTO) 0.5 T/MM3 (0-0.8); MONOCYTES % (AUTO) 7.5 % (0-9.0); NEUTROPHILS #(AUTO)-ABSOLUTE 5.3 T/MM3 (1.8-7.7); NEUTROPHILS % (AUTO) 73.4 % (33-66); RED BLOOD COUNT 5.22 M/MM3 (4.50-5.90); WBC - WHITE BLOOD COUNT 7.2 T/MM3 (4.5-11.0)
[2016-08-10 10:34] LABS: ANION GAP 13 MEQ/L (5-15); BUN/CREATININE RATIO 16 RATIO (6-26); CHLORIDE 101 MEQ/L (98-107); CO2 - CARBON DIOXIDE 31 MEQ/L (22-30); GLOMERULAR FILTRATION RATE 76; GLUCOSE 103 MG/DL (75-110); POTASSIUM 4.3 MEQ/L (3.6-5); SODIUM 145 MEQ/L (134-144)
[2016-08-10] MEDS ORDERED: LIDOCAINE 1% (10mg/ml) 2ml SDV INJ ONE (11:00)
[2016-08-10] MEDS ORDERED: BUPIVACAINE 0.25%/EPI 1:200,000 30ml SDV ONE (14:10)
--- NOTE | 2016-08-10 14:21 | ANESPREOP ---
Anesthesia Record Date and Time DATE: 08/10/16 TIME: 14:20 Proposed Surgical Procedure excision of mass from posterior neck NPO since: mn Allergies: Coded Allergies: amlodipine (Unverified Allergy, Unknown, 05/03/14) Ht/Wt/BMI Height: 5 ' 6.00 " Weight: 106.400 kg BMI: 37.9 kg/m2 Vital Signs Date Time Temp Pulse Resp B/P Pulse Ox O2 Delivery O2 Flow Rate FiO2 08/10/16 10:19 98.2 81 14 145/79 94 Room Air Medications Inpatient Medications Current Medications Medications (Trade) Dose Ordered Sig/Heaven Start Time Stop Time Status Last Admin Dose Admin Lactated Ringer's (Lactated Ringers) 1,000 ml @ 50 mls/hr Q20H 08/10/16 07:00 08/10/16 10:54 50 MLS/HR Aspirin (Aspir 81) 81 Mg Tablet.dr, 1 TAB PO DAILY, (Reported) Last Taken: on 08/09/16 Hydrocodone/Acetaminophen (Lortab 5-325 mg Tablet) 1 Each Tablet, 1 TAB PO Q6H PRN for PAIN, (Reported) Last Taken: on 07/11/16 Losartan/Hydrochlorothiazide (Losartan-Hctz 100- 12.5 mg Tab) 1 Each Tablet, 1 TAB PO DAILY, (Reported) Last Taken: on 08/09/16 Multivitamin (Daily Value) 1 Each Tablet, 1 TAB PO DAILY, (Reported) Last Taken: on 08/09/16 Pravastatin Sodium (Pravastatin Sodium) 40 Mg Tablet, 1 TAB PO DAILY, (Reported) Last Taken: on 08/09/16 Currently on Beta Omaira: No Medical/Surgical History Anesthesia PMH: Reports: *Diabetes (PRE-DIABETIC ), *Hypertension, Cancer ( PROSTATE ), Hyperlipidemia, Obesity, Sleep Apnea (pressumptive), Denies: *NV, Anesthesia Reactions (no airway issues), Arthritis, Asthma, Blood Transfusion Reac, CHF, COPD, CVA/Stroke/TIA, Clotting Problems, Glaucoma, Malignant Hyperthermia, Renal Disease, Seizures, Thyroid Disease Use Chewing Tobacco?: No Second Hand Exposure: No Substance Use Type: does not use Alcohol Intake: none Past Surgical History Orthopedic Surgeries: No Abdominal Surgeries: Yes - COLONOSCOPY Genitourinary Surgeries: Yes - TURP Cardiac Surgeries: No Endocrine Surgeries: No Reproductive Surgeries: Yes - RADICAL PROSTATECTOMY Neurological Surgeries: No Ear Surgeries: No Nose Surgeries: No Throat Surgeries: No Other Surgeries: Yes - COLONOSCOPY, EGD, I&D NECK Anesthesia Adverse Reactions: FOUND none Family Hx of Anesthesia Advers: none Hx of Motion Sickness: No Pertinent Findings Laboratory Tests 08/10/16 10:19 Physical Exam Respiratory: Bilat breath sounds equal, Lungs clear Cardiovascular: FOUND Regular rate, rhythm Airway Assessment Mallampati Score: II TMD: 3 Fingerbreadths Neck Extension: Fair Overall Assessment: May Be Diff Mask Vent. (facial hair) ASA: 3 Plan Anesthesia Plan: TIVA, LMA Discussion Discussed risks/options/alternatives of anesthesia and questions answered. Patient consents. Nursing pain assessment noted. Present: Family Member Attestation Statement Prior to the delivery of any anesthetic medication, I examined the patient, developed the plan, obtained the patient's consent and discussed the risk and benefits of the procedure with the patient/guardian. TOÑA GARCIA CRNA August 10, 2016 14:21
[2016-08-10] MEDS ORDERED: FENTANYL 100mcg/2ml INJECTION ONE (14:26)
[2016-08-10] MEDS ORDERED: MIDAZOLAM 2mg/2ml INJECTION ONE (14:27)
[2016-08-10] MEDS ORDERED: PROPOFOL 500mg 50 ML IV ONE (14:27)
[2016-08-10] MEDS ORDERED: POLY17PO6 PO (14:48)
[2016-08-10] MEDS ORDERED: HYDR-4246 PO (14:48)
[2016-08-10] MEDS ORDERED: IBUP-1724 PO (14:48)
[2016-08-10 15:09] VITALS: BP 112/53; PULSE 90; RESP 18; TEMP 97; O2SAT 94
[2016-08-10 15:24] VITALS: BP 112/57; PULSE 73; RESP 14; O2SAT 95
[2016-08-10] MEDS ORDERED: METOCLOPRAMIDE 10mg/2ml INJECTION IV PRN (15:30)
[2016-08-10] MEDS ORDERED: ONDANSETRON 4mg/2ml INJECTION IV PRN (15:30)
[2016-08-10] MEDS ORDERED: MORPHINE SULFATE 4 MG SYRINGE IV PRN (15:30)
[2016-08-10] MEDS ORDERED: HYDROCODONE/APAP 5 mg/325 mg TABLET PO PRN (15:30)
[2016-08-10 15:39] VITALS: BP 109/58; PULSE 72; RESP 18; TEMP 97.1; O2SAT 95
--- NOTE | 2016-08-10 15:44 | ANESPO ---
Post-Op Note Date 08/10/16 Time: 15:23 Status Pt Participated in Evaluation: Pt participated in person Vital Signs Date Time Temp Pulse Resp B/P Pulse Ox O2 Delivery O2 Flow Rate FiO2 08/10/16 15:24 73 14 112/57 95 Room Air 08/10/16 15:09 97.0 Respiratory Function: Airway patent, Regular respirations Cardiovascular Function: Regular pulse Mental Status: Alert/oriented Pain Level Intensity: 3 Hydration: Taking po fluids Complications during Recovery None apparent Follow-Up Instructions Instructions Per Surgeon TOÑA GARCIA CRNA August 10, 2016 15:44
--- NOTE | 2016-08-10 21:24 | OPNOTEF ---
DATE OF SERVICE 08/10/2016 SURGEON Nick Pinzon MD PREOPERATIVE DIAGNOSIS Recurrent sebaceous cyst involving posterior neck. POSTOPERATIVE DIAGNOSIS Recurrent sebaceous cyst involving posterior neck, additional lipoma noted within posterior neck 5 cm in diameter. PROCEDURE Re-excision of recurrent sebaceous cyst involving posterior neck with excision of 5-cm lipoma involving posterior neck. ANESTHESIA TIVA/local. BRIEF HISTORY/INDICATIONS Mr. Cochran is a 61-year-old gentleman who is well known to my surgical practice. I met Mr. Cochran quite some time ago as a result of a large infected sebaceous cyst involving his posterior neck. This did require an incision and drainage in the office and subsequent attempt at re-excision at a later date. Unfortunately, the patient has had the beginning of a recurrence of sebaceous cyst along the right lateral aspect of his prior surgical incision site. Upon examination the patient is found to have a subcutaneous firm nodule on the order of about 1 cm in dimension. Patient presents today to undergo re-excision of recurrent sebaceous cyst. The patient does have about a 6-cm incision involving the posterior neck and it was recommended that this entire area be excised given the fact that he had initially presented with a large infected sebaceous cyst with associated abscess requiring incision and drainage. For completeness please refer to notes included in the patient's chart. PROCEDURE After informed consent was obtained the patient was brought to the operative suite and placed on the table in a right lateral decubitus position. The area of concern involving the posterior neck was then prepped and draped in sterile fashion. Formal time-out was then completed. 0.25% Marcaine with epinephrine was injected circumferentially around his prior surgical incision site. His prior incision was on the order of about 6 cm in length. Elliptical incision that was on the order of 3 cm in width and 6.5 cm in length was then made encompassing his initial incision. This elliptical incision did encompass the area of concern that had been marked out percutaneously. Dissection was then carried out along the elliptical incision. Skin edges were undermined. The prior fibrotic scar-like tissue was excised in its entirety back to normal tissue. This was then passed off the table as a surgical specimen. Attention was then focused to the depth of the wound. One could actually see a lipoma that had not been identified preoperatively within the deep subcutaneous tissues. This lipomatous-appearing lesion was well encapsulated and was on the order of 5 cm in diameter. This lipomatous lesion was able to be excised in its entirety without difficulty from the surrounding tissues and was also submitted for pathologic evaluation. Meticulous hemostasis was obtained within the wound. Attention was then directed towards closure of the wound. Wound was closed in several layers. First, the deepest layer was closed in a running fashion with 3-0 Vicryl followed by an additional layer within the subcuticular tissues also in a running fashion with 3-0 Vicryl. Skin edges were reapproximated in a run fashion with 4-0 Prolene. The patient is in the process of awakening from his anesthetic and will be sent back to the recovery room once deemed in stable condition. PARMINDER
== END 2016-08-10 15:50 | disposition home or self-care (01) ==
LOC: SCU 10:03
PROVIDERS: ATTEND Surgery
DX: D17.0 Benign lipomatous neoplasm of skin and subcutaneous tissue of head, face and neck (principal); L90.5 Scar conditions and fibrosis of skin; I10 Essential (primary) hypertension; E78.5 Hyperlipidemia, unspecified; J30.1 Allergic rhinitis due to pollen; M51.36 Other intervertebral disc degeneration, lumbar region; Z79.899 Other long term (current) drug therapy; Z79.82 Long term (current) use of aspirin; Z88.8 Allergy status to other drugs, medicaments and biological substances; Z85.46 Personal history of malignant neoplasm of prostate; Z90.79 Acquired absence of other genital organ(s)
CPT/HCPCS: 11426; 13132; 36415; 80048; 85025; 88304; J2250; J3010; J7120